=== PATIENT | female | born 1980 | race Caucasian/White ===

== ENCOUNTER 2016-05-28 14:33 | Outpatient (CLI) | payer MEDICAID | END 2016-05-28 14:34 | disposition home or self-care (01) | DX: M54.9 Dorsalgia, unspecified (principal); M54.5 Low back pain ==

== ENCOUNTER 2016-05-29 10:44 | Emergency (ER) | payer MEDICAID ==
[2016-05-29] MEDS ORDERED: KETOROLAC 60 MG/2 ML VIAL IM STA (12:24)
[2016-05-29] MEDS ORDERED: DEXAMETHASONE 10 MG/ML VIAL PO STA (12:25)
[2016-05-29] MEDS ORDERED: KETOROLAC 30 MG/ML VIAL ONE (12:31)
[2016-05-29] MEDS ORDERED: DEXAMETHASONE 10 MG/ML VIAL ONE (12:31)
[2016-05-29] MEDS ORDERED: CHERRY SYRUP 10 ML UDC PO ONE (12:31)
== END 2016-05-29 12:48 | disposition home or self-care (01) ==
DX: M54.41 Lumbago with sciatica, right side (principal); G89.29 Other chronic pain; M19.90 Unspecified osteoarthritis, unspecified site; F17.200 Nicotine dependence, unspecified, uncomplicated
CPT/HCPCS: 96372; 99283; A9270

== ENCOUNTER 2016-06-03 14:43 | Outpatient (CLI) | payer MEDICAID | END 2016-06-03 14:44 | disposition home or self-care (01) | DX: Z78.9 Other specified health status (principal) ==

== ENCOUNTER 2016-06-09 18:37 | Emergency (ER) | payer MEDICAID ==
[2016-06-09] MEDS ORDERED: DEXAMETHASONE 10 MG/ML VIAL IM STA (19:12)
[2016-06-09] MEDS ORDERED: DEXAMETHASONE 10 MG/ML VIAL ONE (19:15)
== END 2016-06-09 19:28 | disposition home or self-care (01) ==
DX: M54.41 Lumbago with sciatica, right side (principal); G89.29 Other chronic pain; R03.0 Elevated blood-pressure reading, without diagnosis of hypertension

== ENCOUNTER 2016-09-10 14:06 | Outpatient (CLI) | payer MEDICAID | END 2016-09-10 14:07 | disposition home or self-care (01) | DX: N63 Unspecified lump in breast (principal) ==

== ENCOUNTER 2017-07-20 13:04 | Outpatient (CLI) | payer MEDICAID | END 2017-07-20 13:05 | disposition home or self-care (01) | LOC: SC 13:04 | PROVIDERS: ATTEND Internal Medicine Pulmonary Disease | DX: G47.33 Obstructive sleep apnea (adult) (pediatric) (principal) | CPT/HCPCS: 99203; 99212 ==

== ENCOUNTER 2017-08-16 19:01 | Emergency (ER) | payer MEDICAID ==
[2017-08-16 19:20] VITALS: BP 142/118
--- NOTE | 2017-08-16 21:09 | ED Physician Documentation ---
PD HPI LOWER EXT INJURY - Stated complaint Stated Complaint: LEG SWELLING - Chief complaint Chief Complaint: Ext Problem - History obtained from History obtained from: Patient - History of Present Illness PD HPI LOW EXT INJURY LOCATION: Both, Other (had swelling of legs, hands and face yesterday. Arms and face improved today but still swelling of legs. No noted new foods, meds, and not on current BP meds.) Type of injury: Other (no injury nor bites/stings.) Where injury occurred: Home Timing - onset: Yesterday Timing - details: Abrupt onset, Still present (improving but still with legs swelling) Associated symptoms: Swelling. No: Weakness, Numbness Similar symptoms before: Has not had sx before Recently seen: Not recently seen Review of Systems Constitutional: denies: Fever Nose: denies: Rhinorrhea / runny nose, Congestion Throat: denies: Sore throat Respiratory: denies: Dyspnea, Cough, Wheezing GI: denies: Abdominal Pain, Nausea, Vomiting, Diarrhea Skin: denies: Rash, Lesions Neurologic: denies: Generalized weakness, Focal weakness, Numbness, Near syncope , Altered mental status, Headache Immunocompromised: denies: Immunocompromised PD PAST MEDICAL HISTORY - Past Medical History Past Medical History: Yes Cardiovascular: High cholesterol GI: GERD 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 Psych: Depression, Anxiety, Panic attacks Musculoskeletal: Osteoarthritis, Chronic back pain - Past Surgical History Past Surgical History: Yes /MANAGER SCHEDULING: section - Present Medications Home Medications: Ambulatory Orders Medication Instructions Recorded Confirmed Bcp 0 mg PO DAILY 02/02/16 05/29/16 Duloxetine HCl [Cymbalta] 60 mg PO DAILY 02/02/16 05/29/16 Minocycline HCl 1 cap PO BID 02/02/16 05/29/16 Pantoprazole Sodium 40 mg PO DAILY 02/02/16 05/29/16 Pravastatin Sodium 40 mg PO DAILY 02/02/16 05/29/16 Pregabalin [Lyrica] 1 cap PO DAILY 02/02/16 05/29/16 metFORMIN [Glucophage] 1 tab PO TID 02/02/16 05/29/16 Nabumetone 500 mg PO DAILY 03/25/16 05/29/16 Cyclobenzaprine [Flexeril] 10 mg PO TID PRN #20 tablet 05/29/16 Oxycodone HCl/Acetaminophen 1 - 2 each PO Q6H PRN #10 tablet 05/29/16 [Percocet 5-325 mg Tablet] Oxycodone HCl/Acetaminophen 1 - 2 tab PO Q4H PRN #15 tablet 06/09/16 [Percocet 5-325 mg Tablet] Cetirizine [ZyrTEC] 10 mg PO DAILY #10 tablet 08/16/17 Dexamethasone [Decadron] 4 mg PO DAILY #5 tablet 08/16/17 Furosemide [Lasix] 20 mg PO DAILY #5 tablet 08/16/17 - Allergies Allergies/Adverse Reactions: Allergies Allergy/AdvReac Type Severity Reaction Status Date / Time Penicillins Allergy Severe Respiratory Verified 08/16/17 19:21 hydrocodone bitartrate * AdvReac Severe Nausea Verified 08/16/17 19:21 [From Vicodin] tramadol AdvReac Severe Nausea Verified 08/16/17 19:21 - Social History Does the pt smoke?: Yes Smoking Status: Current every day smoker Does the pt drink ETOH?: Yes Does the pt have substance abuse?: No - Immunizations Immunizations are current?: Yes - POLST Patient has POLST: No PD ED PE NORMAL - Vitals Vital signs reviewed: Yes - General General: Alert and oriented X 3, No acute distress, Well developed/nourished - HEENT HEENT: Pharynx benign - Neck Neck: Supple, no meningeal sign, No adenopathy - Cardiac Cardiac: RRR, No murmur - Respiratory Respiratory: Clear bilaterally - Abdomen Abdomen: Soft, Non tender - Derm Derm: Normal color, Warm and dry, No rash - Extremities Extremities: Other (2+ edema in lower legs and ankles/feet. No redness; some general tenderness. Mild edema in back of hands. No oral swelling. ) - Neuro Neuro: Alert and oriented X 3, No motor deficit, Normal speech Eye Opening: Spontaneous Motor: Obeys Commands Verbal: Oriented GCS Score: 15 Results - Vitals Vitals: Oxygen O2 Source Room air PD MEDICAL DECISION MAKING - ED course Complexity details: considered differential (she), d/w patient Departure - Departure Disposition: 01 Home, Self Care Clinical Impression: Generalized edema Condition: Stable Record reviewed to determine appropriate education?: Yes Instructions: ED Edema Legs Bilateral Follow-Up: Selina Anderson DO [Primary Care Provider] - Prescriptions: Cetirizine [ZyrTEC] 10 mg PO DAILY #10 tablet Dexamethasone [Decadron] 4 mg PO DAILY #5 tablet Furosemide [Lasix] 20 mg PO DAILY #5 tablet Comments: I presume the swelling you had all over was related to an allergic reaction or some side effect. You are not on any medicines that would commonly do this you could develop reactions to any medication eventually. However there are a lot of environmental causes that could have done it as well. Use Decadron daily for the next 5 days and cetirizine daily for the next week. This would be for allergy response. The swelling in the legs he could do a diuretic daily for the next few days. Elevate and rest her feet often to help reduce the swelling. Recheck if not better over the next few days or if recurrent episodes. Forms: Activity restrictions Discharge Date/Time: 08/16/17 22:15
[2017-08-16] MEDS ORDERED: CETIRIZINE 10 MG TABLET PO STA (21:37)
[2017-08-16] MEDS ORDERED: DEXAMETHASONE 10 MG/ML VIAL PO STA (21:37)
[2017-08-16] MEDS ORDERED: FUROSEMIDE 20 MG TABLET PO STA (21:37)
[2017-08-16] MEDS ORDERED: diphenhydrAMINE 25 MG CAPSULE PO STA (21:37)
== END 2017-08-16 22:15 | disposition home or self-care (01) ==
LOC: ED 19:01
DX: R60.1 Generalized edema (principal); E78.00 Pure hypercholesterolemia, unspecified; F17.200 Nicotine dependence, unspecified, uncomplicated
CPT/HCPCS: 99283; A9270

== ENCOUNTER 2017-09-22 12:09 | Emergency (ER) | payer MEDICAID ==
[2017-09-22 12:23] VITALS: BP 138/77
--- NOTE | 2017-09-22 13:42 | ED Physician Documentation ---
PD HPI BACK PAIN - Stated complaint Stated Complaint: BACK PX - Chief complaint Chief Complaint: Back Pain - History obtained from History obtained from: Patient - History of Present Illness Timing - onset: Other (37-year-old woman with chronic back pain, lumbar pain that radiates to the right. It has been worse the last few days after cleaning at her apartment. At baseline she takes 3 Percocet a day for this and is in pain management with her physician in [place]. 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 ANALYST: section - Present Medications Home Medications: Ambulatory Orders Medication Instructions Recorded Confirmed Minocycline HCl 1 cap PO BID 02/02/16 05/29/16 Pregabalin [Lyrica] 1 cap PO DAILY 02/02/16 05/29/16 metFORMIN [Glucophage] 1 tab PO TID 02/02/16 05/29/16 Nabumetone 500 mg PO DAILY 03/25/16 05/29/16 Oxycodone HCl/Acetaminophen 1 - 2 tab PO Q4H PRN #15 tablet 06/09/16 [Percocet 5-325 mg Tablet] Amitriptyline HCl 50 mg PO QPM 09/22/17 09/22/17 Methocarbamol 750 mg PO QPM 09/22/17 09/22/17 Omeprazole 40 mg PO 09/22/17 Prazosin HCl 2 mg PO 09/22/17 predniSONE [Deltasone] 20 mg PO [id number] #21 tab 09/22/17 - Allergies Allergies/Adverse Reactions: Allergies Allergy/AdvReac Type Severity Reaction Status Date / Time Penicillins Allergy Severe Respiratory Verified 09/22/17 12:23 hydrocodone bitartrate * AdvReac Severe Nausea Verified 09/22/17 12:23 [From Vicodin] tramadol AdvReac Severe Nausea Verified 09/22/17 12:23 - Social History Does the pt smoke?: Yes Smoking Status: Current every day smoker Does the pt drink ETOH?: Yes Does the pt have substance abuse?: No - Immunizations Immunizations are current?: Yes - POLST Patient has POLST: No PD ED PE NORMAL - Vitals Vital signs reviewed: Yes - General General: Alert and oriented X 3, No acute distress - Back Back: Other (Tender to the right paralumbar musculature, no significant midline tenderness.The patient has equal and normal Achilles and patellar reflexes bilaterally. Normal sensation in all areas of the legs. Patient denies saddle anesthesia. Normal strength in flexion-extension at the ankles, knees, and flexion of the hips.) - Derm Derm: Normal color, Warm and dry - Extremities Extremities: No edema, No calf tenderness / cord - Neuro Neuro: Alert and oriented X 3, Normal speech Results - Vitals Vitals: Vital Signs - 24 hr 09/22/17 12:20 Temperature 36.1 C L Heart Rate 97 Respiratory 18 Rate Blood Pressure 138/77 H O2 Saturation 97 Oxygen O2 Source Room air PD MEDICAL DECISION MAKING - ED course ED course: She says that in the past when she has an exacerbation like this a steroid taper is very helpful and she also needs a note for work. - Sepsis Event Vital Signs: Vital Signs - 24 hr 09/22/17 12:20 Temperature 36.1 C L Heart Rate 97 Respiratory 18 Rate Blood Pressure 138/77 H O2 Saturation 97 Oxygen O2 Source Room air Departure - Departure Disposition: 01 Home, Self Care Clinical Impression: Sciatica Qualifiers: Laterality: right Qualified Code(s): M54.31 - Sciatica, right side Condition: Good Record reviewed to determine appropriate education?: Yes Instructions: ED Spasm Back No Trauma Prescriptions: predniSONE [Deltasone] 20 mg PO [id number] #21 tab Comments: Call your doctor to arrange a follow-up appointment, make the next available appointment. In the interim, return anytime if worse or if new symptoms develop. Your blood pressure was elevated today on check into the emergency department. This does not mean that you have hypertension, it is a common phenomenon to come to the emergency department and have elevated blood pressure. I recommend that you see your primary care physician within the week to have it rechecked when you are feeling better. Forms: Activity restrictions
== END 2017-09-22 13:44 | disposition home or self-care (01) ==
LOC: ED 12:09
DX: M54.31 Sciatica, right side (principal); G89.29 Other chronic pain; R03.0 Elevated blood-pressure reading, without diagnosis of hypertension; E78.00 Pure hypercholesterolemia, unspecified; K21.9 Gastro-esophageal reflux disease without esophagitis; Z79.899 Other long term (current) drug therapy; F17.200 Nicotine dependence, unspecified, uncomplicated
CPT/HCPCS: 99283

== ENCOUNTER 2017-12-28 10:54 | Outpatient (CLI) | payer MEDICAID ==
[2017-12-29 13:17] LABS: HEPATITIS B SURFACE ANTIGEN NON-REACTIVE (NON-REACTIVE)
[2017-12-29 13:31] LABS: HEPATITIS C ANTIBODY NON-REACTIVE (NON-REACTIVE)
[2017-12-29 14:48] LABS: HIV AG/AB 4TH GEN NON-REACTIVE (NON-REACTIVE)
[2017-12-30 15:23] LABS: HSV 1 IGG TYPE SPECIFIC AB <0.90 index; HSV 2 IGG TYPE SPECIFIC AB <0.90 index
== END 2017-12-28 10:55 | disposition home or self-care (01) ==
LOC: LAB 10:54
PROVIDERS: ATTEND Obstetrics & Gynecology
DX: Z11.3 Encounter for screening for infections with a predominantly sexual mode of transmission (principal)
CPT/HCPCS: 36415; 81599; 86592; 86695; 86696; 86803; 87340; 87389

== ENCOUNTER 2018-02-10 19:38 | Emergency (ER) | payer MEDICAID ==
--- NOTE | 2018-02-10 20:18 | ED Physician Documentation ---
PD HPI GI BLEED - Stated complaint Stated Complaint: FEM /TRUNK PX - Chief complaint Chief Complaint: General - History obtained from History obtained from: Patient - History of Present Illness Timing - onset: How many weeks ago (1) Timing - duration: Weeks (1) Timing - details: Gradual onset, Still present Associated symptoms: BRBPR, Other (swollen tender hemorrhoids) Contributing factors: No: Sick contact, Bad food, Travel, Recent antibiotics Similar symptoms before: Diagnosis (hemorrhoids) Recently seen: Not recently seen Review of Systems Constitutional: denies: Fever Eyes: denies: Decreased vision Ears: denies: Ear pain Nose: denies: Congestion Throat: denies: Sore throat Cardiac: denies: Chest pain / pressure, Palpitations Respiratory: denies: Dyspnea, Cough GI: reports: Bloody / black stool, Other (swollen tender hemorrhoids). 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 - Present Medications Home Medications: Ambulatory Orders Medication Instructions Recorded Confirmed Minocycline HCl 1 cap PO BID 02/02/16 05/29/16 Pregabalin [Lyrica] 1 cap PO DAILY 02/02/16 05/29/16 metFORMIN [Glucophage] 1 tab PO TID 02/02/16 05/29/16 Nabumetone 500 mg PO DAILY 03/25/16 05/29/16 Oxycodone HCl/Acetaminophen 1 - 2 tab PO Q4H PRN #15 tablet 06/09/16 [Percocet 5-325 mg Tablet] Methocarbamol 750 mg PO QPM 09/22/17 09/22/17 Omeprazole 40 mg PO 09/22/17 Prazosin HCl 2 mg PO 09/22/17 Sulfamethoxazole/Trimethoprim 1 each PO BID #10 tablet 02/10/18 [Sulfamethoxazole-Tmp Ds Tablet] Venlafaxine ER [Effexor ER] 150 mg PO DAILY 02/10/18 02/10/18 busPIRone [Buspar] 5 mg PO BID 02/10/18 02/10/18 - Allergies Allergies/Adverse Reactions: Allergies Allergy/AdvReac Type Severity Reaction Status Date / Time Penicillins Allergy Severe Respiratory Verified 02/10/18 19:44 hydrocodone bitartrate * AdvReac Severe Nausea Verified 02/10/18 19:44 [From Vicodin] tramadol AdvReac Severe Nausea Verified 02/10/18 19:44 - Social History Does the pt smoke?: Yes Smoking Status: Current every day smoker Does the pt drink ETOH?: Yes Does the pt have substance abuse?: No - Immunizations Immunizations are current?: Yes - POLST Patient has POLST: No PD ED PE NORMAL - Vitals Vital signs reviewed: Yes (hypertensive) - General General: Alert and oriented X 3, No acute distress, Well developed/nourished - HEENT HEENT: Atraumatic, PERRL, EOMI - Neck Neck: Supple, no meningeal sign - Respiratory Respiratory: No respiratory distress - Rectal Rectal: Other (Giovanna predatory hunter present. EXam shows non-thrombosed external and interal hemmorrhoids the most prevalent at 1200 and this was reduced with hydrocortisone and continued pressure. There is a lot of excoriation to the skin above the rectum consistent with excessive wiping. There is no blood on the exam at this time. 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, No motor deficit, No sensory deficit, Normal speech Eye Opening: Spontaneous Motor: Obeys Commands Verbal: Oriented GCS Score: 15 - Psych Psych: Normal mood, Normal affect Results - Vitals Vitals: Vital Signs - 24 hr 02/10/18 19:42 Temperature 37 C Heart Rate 86 Respiratory 18 Rate Blood Pressure 174/102 H O2 Saturation 98 Oxygen O2 Source Room air PD MEDICAL DECISION MAKING - ED course Complexity details: considered differential, d/w patient ED course: 37-year-old female with painful hemorrhoids that are not thrombosed has her hemorrhoids reduced with use of hydrocortisone and pressure she is taught the technique of hemorrhoid reduction and encouraged to use this to get control of her inflamed hemorrhoids. She does have some skin breakdown and will place her on a short course of antibiotic as well. Departure - Departure Disposition: 01 Home, Self Care Clinical Impression: Hemorrhoids Qualifiers: Hemorrhoid type: second degree Qualified Code(s): K64.1 - Second degree hemorrhoids Condition: Stable Instructions: ED Hemorrhoids Follow-Up: Your, doctor [Other] Prescriptions: Sulfamethoxazole/Trimethoprim [Sulfamethoxazole-Tmp Ds Tablet] 1 each PO BID #10 tablet
[2018-02-10] MEDS ORDERED: HYDROCORTISONE 1% CREAM 28 GM TUBE TOP STA (20:30)
[2018-02-10] MEDS ORDERED: oxyCODONE/ACET 5/325 Prepack 4 PO STA (22:09)
[2018-02-10] MEDS ORDERED: SULFAM/TRIM 800/160 Prepack 2 PO ONE (22:14)
[2018-02-10 22:30] VITALS: BP 131/81
== END 2018-02-10 22:32 | disposition home or self-care (01) ==
LOC: ED 19:38
DX: K64.1 Second degree hemorrhoids (principal); F17.200 Nicotine dependence, unspecified, uncomplicated
CPT/HCPCS: 99283; A9270

== ENCOUNTER 2018-02-14 06:18 | Emergency (ER) | payer MEDICAID ==
[2018-02-14] MEDS ORDERED: SODIUM CHLORIDE 0.9% 1,000 ML IV ONE (07:22)
[2018-02-14] MEDS ORDERED: diphenhydrAMINE INJ 50 MG/ML VIAL IVP STA (07:22)
[2018-02-14] MEDS ORDERED: METOCLOPRAMIDE 10 MG/2 ML VIAL IVP STA (07:22)
[2018-02-14] MEDS ORDERED: ACETAMINOPHEN 1,000 MG/100 ML 100 ML IV STA (07:22)
[2018-02-14] MEDS ORDERED: LORazepam 2 MG/ML VIAL IVP STA (07:22)
[2018-02-14 07:55] LABS: ALBUMIN 3.8 g/dL (3.2-5.5); ALBUMIN/GLOBULIN RATIO 1.1 (1.0-2.2); BILIRUBIN,TOTAL 0.6 mg/dL (0.2-1.0); CREATININE 0.8 mg/dL (0.4-1.0); TOTAL PROTEIN 7.2 g/dL (6.7-8.2)
--- NOTE | 2018-02-14 08:27 | CT Report ---
Reason: SIMS Procedure Date: 02/14/2018 Accession Number: [id number] / [id number] Procedure: CT - Head W/O CPT Code: FULL RESULT: EXAM: CT HEAD WITHOUT CONTRAST EXAM DATE: 02/14/2018 08:08 AM. CLINICAL HISTORY: Headache. COMPARISON: None. TECHNIQUE: Multiaxial CT images were obtained from the foramen magnum to the vertex. Reformats: Sagittal and coronal. IV contrast: None. In accordance with CT protocol optimization, one or more of the following dose reduction techniques were utilized for this exam: automated exposure control, adjustment of mA and/or KV based on patient size, or use of iterative reconstructive technique. FINDINGS: Parenchyma: No intraparenchymal hemorrhage. No evidence of mass, midline shift, or CT findings of infarction. Hussein-white differentiation is distinct. Extraaxial Spaces: Normal for age. No subdural or epidural collections identified. Ventricles: Normal in size and position. Sinuses and Orbits: Imaged paranasal sinuses, orbits, and mastoids show no significant abnormality. Bones: No evidence of fracture or calvarial defect. Other: None. IMPRESSION: No acute intracranial abnormality. RADIA
[2018-02-14] MEDS ORDERED: SUMAtriptan 6 MG/0.5 ML VIAL SUBQ STA (08:49)
[2018-02-14] MEDS ORDERED: KETOROLAC 15 MG/ML VIAL IVP STA (08:49)
--- NOTE | 2018-02-14 08:56 | ED Physician Documentation ---
History of Present Illness - Stated complaint Stated Complaint: BILAT LEG PX/MIGRAINE - Chief complaint Chief Complaint: General - Additonal information Additional information: 37-year-old female with a history of headaches presents the emergency department with complaints of a generalized global headache which she describes as a throbbing type headache. The patient denies any neck stiffness, radiation into her neck, fever or focal neurologic changes. The patient's headache is similar to prior episodes of headache she is experienced in the past but has had no relief with home management. The patient also reports bilateral leg cramping which started several days ago. The patient recently started using Bactrim. The patient denies motor weakness, urinary retention, overflow incontinence, back pain, hematuria, sensory changes or saddle anesthesia. Symptoms are described as moderate. No relieving factors. No other associated symptoms Review of Systems Constitutional: denies: Fever, Myalgias, Fatigue Eyes: reports: Photophobia. denies: Discharge Ears: denies: Ear pain Nose: denies: Congestion Throat: denies: Sore throat Cardiac: denies: Chest pain / pressure Respiratory: denies: Cough GI: reports: Nausea. denies: Abdominal Pain Skin: denies: Rash Musculoskeletal: denies: Neck pain Neurologic: reports: Headache. 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 Psych: Depression, Anxiety, Panic attacks Musculoskeletal: Osteoarthritis, Chronic back pain Other Past Medical History: spinal stenosis - Past Surgical History Past Surgical History: Yes /WASH TEST CHECKER: section HEENT: Tonsil/Adenoidectomy - Present Medications Home Medications: Ambulatory Orders Medication Instructions Recorded Confirmed Minocycline HCl 1 cap PO BID 02/02/16 05/29/16 Pregabalin [Lyrica] 1 cap PO DAILY 02/02/16 05/29/16 metFORMIN [Glucophage] 1 tab PO TID 02/02/16 05/29/16 Nabumetone 500 mg PO DAILY 03/25/16 05/29/16 Oxycodone HCl/Acetaminophen 1 - 2 tab PO Q4H PRN #15 tablet 06/09/16 [Percocet 5-325 mg Tablet] Methocarbamol 750 mg PO QPM 09/22/17 09/22/17 Omeprazole 40 mg PO 09/22/17 Prazosin HCl 2 mg PO 09/22/17 Sulfamethoxazole/Trimethoprim 1 each PO BID #10 tablet 02/10/18 [Sulfamethoxazole-Tmp Ds Tablet] Venlafaxine ER [Effexor ER] 150 mg PO DAILY 02/10/18 02/10/18 busPIRone [Buspar] 5 mg PO BID 02/10/18 02/10/18 Promethazine [Phenergan] 25 mg PO Q6H PRN #30 tab 02/14/18 Sumatriptan Succinate [Imitrex] 50 mg PO DAILY PRN #10 tablet 02/14/18 - Allergies Allergies/Adverse Reactions: Allergies Allergy/AdvReac Type Severity Reaction Status Date / Time Penicillins Allergy Severe Respiratory Verified 02/14/18 06:27 hydrocodone bitartrate * AdvReac Severe Nausea Verified 02/14/18 06:27 [From Vicodin] tramadol AdvReac Severe Nausea Verified 02/14/18 06:27 - Social History Does the pt smoke?: Yes Smoking Status: Current every day smoker Does the pt drink ETOH?: Yes Does the pt have substance abuse?: No - Immunizations Immunizations are current?: Yes - POLST Patient has POLST: No PD ED PE NORMAL - General General: Alert and oriented X 3, No acute distress - HEENT HEENT: Atraumatic, PERRL, EOMI, Ears normal - Neck Neck: Supple, no meningeal sign - Cardiac Cardiac: RRR, Strong equal pulses - Respiratory Respiratory: No respiratory distress, Clear bilaterally - Abdomen Abdomen: Soft, Non tender, Non distended - Derm Derm: Normal color, Warm and dry, No rash - Extremities Extremities: No deformity, No tenderness to palpate, Normal ROM s pain, No edema, No calf tenderness / cord, Other (The patient has full active range of motion of the bilateral hips, knees and ankles. There is no lower extremity swelling. The patient has no calf tenderness bilaterally. The patient has normal bilateral dorsalis pedis pulses. There is no skin changes. No focal area of abscess. There is normal motor strength in bilateral lower extremities and normal sensation to light touch.) - Neuro Neuro: Alert and oriented X 3, Normal speech - Psych Psych: Normal affect Results - Vitals Vitals: Vital Signs - 24 hr 02/14/18 02/14/18 06:23 08:30 Temperature 36.3 C L Heart Rate 72 66 Respiratory 24 14 Rate Blood Pressure 161/100 H 154/92 H O2 Saturation 97 96 Oxygen O2 Source Room air - Labs Labs: Laboratory Tests 02/14/18 07:34 Sodium 136 Potassium 4.3 Chloride 100 L Carbon Dioxide 23 Anion Gap 13.0 BUN 16 Creatinine 0.8 Estimated GFR (MDRD) 82 L Glucose 93 Calcium 9.0 Total Bilirubin 0.6 AST 24 ALT 28 Alkaline Phosphatase 67 Total Creatine Kinase 44 Total Protein 7.2 Albumin 3.8 Globulin 3.4 Albumin/Globulin Ratio 1.1 Lipase 20 L - Rads (name of study) CT head Radiology: Final report received (IMPRESSION: No acute intracranial abnormality. ) PD MEDICAL DECISION MAKING - ED course ED course: On reevaluation the patient resting comfortably and her symptoms appear to be under control. The patient's headache seems to be her typical migrainous headache, clinically there is no findings or symptoms to suggest spontaneous subarachnoid hemorrhage, meningitis or venous sinus thrombosis. Currently I do not think a lumbar puncture would be of much utility or a CT angiogram. The patient's leg pain seems to be secondary to muscle cramps possibly from starting Bactrim. Clinically there is no evidence to suggest an acute arterial thrombus, DVT, trauma or an infectious etiology. Currently, the patient appears appropriate for discharge and further evaluation and management as an outpatient. I advised that she should stop taking the Bactrim. I discussed warning signs and recommended returning to the emergency department immediately for any worsening or any concerns. The patient requested that I refill her chronic narcotic pain management medications. I explained to her that we do not refill chronic narcotic pain medications out of the emergency department. I advised that she should contact her prescribing physician for any early refills. The patient reported that she was out of her narcotics at the end of the visit. The patient was unhappy with this plan. Departure - Departure Disposition: 01 Home, Self Care Clinical Impression: Bilateral leg cramps Headache Qualifiers: Headache type: unspecified Headache chronicity pattern: unspecified pattern Intractability: not intractable Qualified Code(s): R51 - Headache Condition: Good Instructions: ED Cephalgia Unspecified, ED Muscle Pain Leg Cramps Prescriptions: Promethazine [Phenergan] 25 mg PO Q6H PRN #30 tab PRN Reason: Nausea / Vomiting Sumatriptan Succinate [Imitrex] 50 mg PO DAILY PRN #10 tablet PRN Reason: Headache Comments: Please follow-up with your primary care physician for recheck and reevaluation. Please return to the emergency department immediately for any worsening or any concerns. Discharge Date/Time: 02/14/18 09:15
[2018-02-14 09:30] VITALS: BP 154/92
== END 2018-02-14 09:15 | disposition home or self-care (01) ==
LOC: ED 06:18
DX: R51 Headache (principal); R25.2 Cramp and spasm; F17.200 Nicotine dependence, unspecified, uncomplicated
CPT/HCPCS: 36415; 70450; 80053; 82550; 83690; 96365; 96372; 96375; 99283; 99284; J0131; J1200; J2060; J2765

== ENCOUNTER 2018-02-22 08:00 | Outpatient (CLI) | payer MEDICAID | END 2018-02-22 08:01 | disposition home or self-care (01) | LOC: LAB.R 08:00 | PROVIDERS: ATTEND Obstetrics & Gynecology | DX: R30.0 Dysuria (principal) | CPT/HCPCS: 87086 ==

== ENCOUNTER 2018-05-25 18:23 | Emergency (ER) | payer MEDICAID ==
--- NOTE | 2018-05-25 20:48 | ED Physician Documentation ---
PD HPI BACK INJURY - Stated complaint Stated Complaint: BACK PAIN - History obtained from History obtained from: Patient - History of Present Illness Location: Right, Lower Type of injury: No: Fall, Twist, Blunt / blow Where injury occurred: Home (She states she has chronic low back pain and does see a provider for that. She is on regular anti-inflammatories, muscle relaxant, Lyrica. She does not take any ongoing narcotic medications. Without particular injury, she noticed a worsening of the prior low back pain.) Timing - onset: How many days ago (4-5) Timing - duration: Days (4-5) Timing - details: Gradual onset, Waxing and waning Quality: Pain, Spasm, Similar to prior episodes Improved by: No: Rest, Meds (Her usual medications are not improving the pain.) Worsened by: Moving, Palpating Associated symptoms: Incontinent of urine (For several months and has been to her primary care about it. She states they did do some manometry and it was not felt to have significant cord pressure.). No: Fever, Weakness, Numbness Similar symptoms before: Diagnosis (Chronic low back pain with some degenerative disc disease but not surgical. She is being treated with medications ongoing.) Review of Systems Constitutional: denies: Fever, Chills, Myalgias Nose: denies: Rhinorrhea / runny nose, Congestion Throat: denies: Sore throat Respiratory: denies: Cough GI: denies: Nausea, Vomiting, Diarrhea : reports: Incontinent (at times, but not consistent, since last February). 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 Psych: Depression, Anxiety, Panic attacks Musculoskeletal: Osteoarthritis, Chronic back pain - Past Surgical History Past Surgical History: Yes /DIRT SHOVELER: section HEENT: Tonsil/Adenoidectomy - Present Medications Home Medications: Ambulatory Orders Medication Instructions Recorded Confirmed Pregabalin [Lyrica] 1 cap PO DAILY 02/02/16 05/25/18 metFORMIN [Glucophage] 1 tab PO TID 02/02/16 05/25/18 Nabumetone 500 mg PO DAILY 03/25/16 05/29/16 Oxycodone HCl/Acetaminophen 1 - 2 tab PO Q4H PRN #15 tablet 06/09/16 [Percocet 5-325 mg Tablet] Methocarbamol 750 mg PO QPM 09/22/17 09/22/17 Omeprazole 40 mg PO 09/22/17 Prazosin HCl 2 mg PO 09/22/17 Venlafaxine ER [Effexor ER] 150 mg PO DAILY 02/10/18 05/25/18 Sumatriptan Succinate [Imitrex] 50 mg PO DAILY PRN #10 tablet 02/14/18 05/25/18 Dexamethasone [Decadron] 4 mg PO DAILY #5 tablet 05/25/18 Oxycodone HCl/Acetaminophen 1 each PO Q6H PRN #25 tablet 05/25/18 [Percocet 5-325 mg Tablet] PARoxetine [Paxil] 10 mg PO DAILY 05/25/18 - Allergies Allergies/Adverse Reactions: Allergies Allergy/AdvReac Type Severity Reaction Status Date / Time Penicillins Allergy Severe Respiratory Verified 02/14/18 06:27 hydrocodone bitartrate * AdvReac Severe Nausea Verified 02/14/18 06:27 [From Vicodin] tramadol AdvReac Severe Nausea Verified 02/14/18 06:27 - Social History Does the pt smoke?: Yes Smoking Status: Current every day smoker Does the pt drink ETOH?: Yes Does the pt have substance abuse?: No - Immunizations Immunizations are current?: Yes - POLST Patient has POLST: No PD ED PE NORMAL - Vitals Vital signs reviewed: Yes - General General: Alert and oriented X 3, Well developed/nourished, Other (obese) - Cardiac Cardiac: RRR, No murmur - Abdomen Abdomen: Soft, Non tender - Back Back: No spinal TTP, Other (tender in lateral lumbar muscles ) - Derm Derm: Normal color, Warm and dry - Extremities Extremities: No edema, No calf tenderness / cord - Neuro Neuro: Alert and oriented X 3, No motor deficit, Normal speech Results - Vitals Vitals: Vital Signs - 24 hr 05/25/18 05/25/18 18:33 21:52 Temperature 36.6 C Heart Rate 78 91 Respiratory 18 18 Rate Blood Pressure 149/102 H 161/102 H O2 Saturation 96 95 Oxygen O2 Source Room air PD MEDICAL DECISION MAKING - ED course Complexity details: considered differential (She is on medications for chronic pain with anti-inflammatory, muscle relaxant, Lyrica. She does not take any regular narcotics. She is having worsening over baseline pain last several days without any noted new trauma. There is no red flags to suggest need for imaging. I feel it reasonable to provide short-term pain medication for this flareup of her chronic pain.), d/w patient Departure - Departure Disposition: 01 Home, Self Care Clinical Impression: Acute exacerbation of chronic low back pain Condition: Stable Record reviewed to determine appropriate education?: Yes Instructions: ED Low Back Pain Injury Prescriptions: Dexamethasone [Decadron] 4 mg PO DAILY #5 tablet Oxycodone HCl/Acetaminophen [Percocet 5-325 mg Tablet] 1 each PO Q6H PRN #25 tablet PRN Reason: pain Comments: Continue your regular medications with the anti-inflammatory and muscle relaxant. Heat and gentle range of motion for the low back as tolerated. Local treatment such as massage and chiropractic are okay. Add Decadron steroid anti- inflammatory daily for the next 5 days. Oxycodone pain medicine if needed short-term for the exacerbation of pain. Presumably this will go down to your baseline level of pain and continue with your regular medications at home. Follow-up with your primary care if not improved well enough over the next week. Discharge Date/Time: 05/25/18 21:52
[2018-05-25] MEDS ORDERED: KETOROLAC 60 MG/2 ML VIAL IM STA (21:18)
[2018-05-25] MEDS ORDERED: HYDROmorphone 1 MG/ML CARPUJECT IM STA (21:18)
[2018-05-25] MEDS ORDERED: ACETAMINOPHEN 325 MG TABLET PO STA (21:19)
[2018-05-25] MEDS ORDERED: DEXAMETHASONE 10 MG/ML VIAL PO STA (21:19)
[2018-05-25] MEDS ORDERED: oxyCODONE/ACET 5/325 Prepack 4 PO STA (21:19)
[2018-05-25 21:53] VITALS: BP 161/102
== END 2018-05-25 21:52 | disposition home or self-care (01) ==
LOC: ED 18:23
DX: M54.5 Low back pain (principal); G89.29 Other chronic pain
CPT/HCPCS: 96372; 99283; A9270; J1170

== ENCOUNTER 2018-07-02 22:54 | Emergency (ER) | payer MEDICAID ==
[2018-07-02] MEDS ORDERED: ACETAMINOPHEN 500 MG TABLET PO STA (23:46)
[2018-07-02] MEDS ORDERED: oxyCODONE 5 MG TABLET PO STA (23:46)
[2018-07-02] MEDS ORDERED: LIDOCAINE PATCH 5% TOP STA (23:47)
[2018-07-02] MEDS ORDERED: KETOROLAC 15 MG/ML VIAL IM STA (23:47)
--- NOTE | 2018-07-03 01:00 | XRAY Report ---
Reason: Left rib pain Procedure Date: 07/03/2018 Accession Number: [id number] / [id number] Procedure: XR - Ribs w/PA Chest LT CPT Code: FULL RESULT: EXAM: LEFT RIB RADIOGRAPHY EXAM DATE: 07/03/2018 12:38 AM. CLINICAL HISTORY: Left rib pain. COMPARISON: CHEST 2 VIEW PA/LAT 02/02/2016 11:30 PM. TECHNIQUE: 1 view of the chest and 2 views of the ribs. FINDINGS: Bones: Motion artifact. No acute fracture seen. Lungs: No alveolar consolidation or pleural effusion seen. No pneumothorax identified. Mediastinum: Within exam limitations, cardiomediastinal silhouette is unremarkable. Other: None. IMPRESSION: 1. Images are degraded due to motion artifact. No acute abnormality seen. RADIA
--- NOTE | 2018-07-03 01:13 | ED Physician Documentation ---
PD HPI BACK PAIN - Stated complaint Stated Complaint: BACK PAIN - Chief complaint Chief Complaint: Back Pain - History obtained from History obtained from: Patient - History of Present Illness Timing - onset: How many days ago (2) Timing - duration: Days (2) Timing - details: Gradual onset Pain level max: 6 Pain level now: 6 Severity Comments: moderate Location: Mid Quality: Pain Associated symptoms: No: Fever, Weakness Improves with: Rest Worsened by: Movement Contributing factors: Other (fall). No: Lifting, Twisting Review of Systems Constitutional: reports: Reviewed and negative Eyes: reports: Reviewed and negative Ears: reports: Reviewed and negative Nose: reports: Reviewed and negative Throat: reports: Reviewed and negative Cardiac: reports: Reviewed and negative Respiratory: reports: Reviewed and negative GI: reports: Reviewed and negative : reports: Reviewed and negative Skin: reports: Reviewed and negative Musculoskeletal: reports: Reviewed and negative Neurologic: reports: Reviewed and negative Psychiatric: reports: Reviewed and negative Endocrine: reports: Reviewed and negative Immunocompromised: reports: Reviewed and negative PD PAST MEDICAL HISTORY - Past Medical History Past Medical History: Yes Cardiovascular: High cholesterol Neuro: Headaches GI: 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 Psych: Depression, Anxiety, Panic attacks Musculoskeletal: Osteoarthritis, Chronic back pain - Past Surgical History Past Surgical History: Yes /STAMPING 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 HEENT: Tonsil/Adenoidectomy - Present Medications Home Medications: Ambulatory Orders Medication Instructions Recorded Confirmed Pregabalin [Lyrica] 1 cap PO DAILY 02/02/16 05/25/18 metFORMIN [Glucophage] 1 tab PO TID 02/02/16 05/25/18 Nabumetone 500 mg PO DAILY 03/25/16 05/29/16 Oxycodone HCl/Acetaminophen 1 - 2 tab PO Q4H PRN #15 tablet 06/09/16 [Percocet 5-325 mg Tablet] Methocarbamol 750 mg PO QPM 09/22/17 09/22/17 Omeprazole 40 mg PO 09/22/17 Prazosin HCl 2 mg PO 09/22/17 Venlafaxine ER [Effexor ER] 150 mg PO DAILY 02/10/18 05/25/18 Sumatriptan Succinate [Imitrex] 50 mg PO DAILY PRN #10 tablet 02/14/18 05/25/18 PARoxetine [Paxil] 10 mg PO DAILY 05/25/18 Acetaminophen [Tylenol Extra 1,000 mg PO TID #60 tablet 07/03/18 Strength] Capsaicin/Menthol [Allevess 1 each TP DAILY #10 adh..patch 07/03/18 5%-0.05% Patch] Ibuprofen 800 mg PO TID #60 tablet 07/03/18 Lidocaine Patch 5% [Lidoderm Patch] 1 each PATCH DAILY #10 patch 07/03/18 - Allergies Allergies/Adverse Reactions: Allergies Allergy/AdvReac Type Severity Reaction Status Date / Time Penicillins Allergy Severe Respiratory Verified 07/02/18 23:01 hydrocodone bitartrate * AdvReac Severe Nausea Verified 07/02/18 23:01 [From Vicodin] tramadol AdvReac Severe Nausea Verified 07/02/18 23:01 - Living Situation Living Situation: reports: With family Living Arrangement: reports: At home - Social History Does the pt smoke?: Yes Smoking Status: Current every day smoker Does the pt drink ETOH?: Yes Does the pt have substance abuse?: No - Family History Family history: reports: Other (Reviewed and not pertinent) - Immunizations Immunizations are current?: Yes - POLST Patient has POLST: No PD ED PE NORMAL - Vitals Vital signs reviewed: Yes - General General: Alert and oriented X 3, No acute distress - HEENT HEENT: PERRL - Neck Neck: Supple, no meningeal sign - Cardiac Cardiac: RRR, No murmur - Respiratory Respiratory: Clear bilaterally - Abdomen Abdomen: Normal bowel sounds, Soft, Non tender, Non distended - Back Back: Other (Paraspinous tenderness to palpation no midline tenderness, Normal hip flexor strength, patellar and Achilles reflex, great toe raise. Negative straight leg raise bilaterally.) - Derm Derm: Warm and dry - Extremities Extremities: No deformity - Neuro Neuro: Alert and oriented X 3 - Psych Psych: Normal mood, Normal affect Results - Vitals Vitals: Vital Signs - 24 hr 07/02/18 07/03/18 22:57 01:18 Temperature 36.4 C L 36.5 C Heart Rate 79 70 Respiratory 18 14 Rate Blood Pressure 143/97 H 131/89 H O2 Saturation 99 98 Oxygen O2 Source Room air - Rads (name of study) Rib x-ray Radiology: Final report received, Other (Within normal limits) PD MEDICAL DECISION MAKING - ED course Complexity details: reviewed results, re-evaluated patient, considered differential, d/w patient, d/w family ED course: 38-year-old female with chronic low back pain resents with low back pain after ground-level fall. Exam unremarkable. Rib x-rays due to rib pain or unremarkable. Pain improved with pain medication. No red flags by history or exam. No clinical indication of cord compression, fracture, cauda equina, abdominal aortic aneurysm. Discharge with symptomatic treatment. Departure - Departure Disposition: 01 Home, Self Care Clinical Impression: Acute exacerbation of chronic low back pain Condition: Stable Instructions: ED Back Care Tips, ED Low Back Pain Injury Follow-Up: Your, PCP [Other] Prescriptions: Acetaminophen [Tylenol Extra Strength] 1,000 mg PO TID #60 tablet Capsaicin/Menthol [Allevess 5%-0.05% Patch] 1 each TP DAILY #10 adh..patch Ibuprofen 800 mg PO TID #60 tablet Lidocaine Patch 5% [Lidoderm Patch] 1 each PATCH DAILY #10 patch Discharge Date/Time: 07/03/18 01:43
[2018-07-03 01:19] VITALS: BP 131/89
[2018-07-03] MEDS ORDERED: oxyCODONE/ACET 5/325 Prepack 4 PO STA (01:34)
== END 2018-07-03 01:43 | disposition home or self-care (01) ==
LOC: ED 22:54
DX: M54.5 Low back pain (principal); G89.29 Other chronic pain; E78.00 Pure hypercholesterolemia, unspecified; F17.200 Nicotine dependence, unspecified, uncomplicated; Z91.81 History of falling
CPT/HCPCS: 71101; 96372; 99283; A9270

== ENCOUNTER 2018-07-24 19:48 | Emergency (ER) | payer MEDICAID ==
--- NOTE | 2018-07-24 21:13 | ED Physician Documentation ---
PD HPI CHEST PAIN - Stated complaint Stated Complaint: MULTIPLE COMP. - Chief complaint Chief Complaint: General - History obtained from History obtained from: Patient - History of Present Illness Timing - onset: How many weeks ago (1) Timing - onset during: Light activity (having pain in upper chest and back with movement and it feels tight at times. Her low back pain is chronic and same character as usual, just worse in severity than usual. No new weakness nor incontinence.) Timing - duration: Weeks (1) Timing - details: Waxing and waning, Other (she is out of her muscle relaxant and usual pain meds for her low back.) Quality: Aching, Sharp, Pain Location: Substernal, Upper back Radiation: Back. No: Jaw, Neck Improved by: Rest Worsened by: Inspiration, Movement. No: Exertion Associated symptoms: Feeling faint / dizzy. No: Shortness of air, Nausea Similar symptoms before: Diagnosis (ongoing lower back pain; no prior episodes of chest/upper back pain.) Review of Systems Constitutional: denies: Fever Nose: denies: Rhinorrhea / runny nose, Congestion Throat: denies: Sore throat Cardiac: reports: Chest pain / pressure. 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 HEENT: Tonsil/Adenoidectomy - Present Medications Home Medications: Ambulatory Orders Medication Instructions Recorded Confirmed Pregabalin [Lyrica] 1 cap PO DAILY 02/02/16 05/25/18 metFORMIN [Glucophage] 1 tab PO TID 02/02/16 05/25/18 Nabumetone 500 mg PO DAILY 03/25/16 05/29/16 Oxycodone HCl/Acetaminophen 1 - 2 tab PO Q4H PRN #15 tablet 06/09/16 [Percocet 5-325 mg Tablet] Methocarbamol 750 mg PO QPM 09/22/17 09/22/17 Omeprazole 40 mg PO 09/22/17 Prazosin HCl 2 mg PO 09/22/17 Venlafaxine ER [Effexor ER] 150 mg PO DAILY 02/10/18 05/25/18 Sumatriptan Succinate [Imitrex] 50 mg PO DAILY PRN #10 tablet 02/14/18 05/25/18 PARoxetine [Paxil] 10 mg PO DAILY 05/25/18 Acetaminophen [Tylenol Extra 1,000 mg PO TID #60 tablet 07/03/18 Strength] Capsaicin/Menthol [Allevess 1 each TP DAILY #10 adh..patch 07/03/18 5%-0.05% Patch] Ibuprofen 800 mg PO TID #60 tablet 07/03/18 Lidocaine Patch 5% [Lidoderm Patch] 1 each PATCH DAILY #10 patch 07/03/18 Dexamethasone [Decadron] 4 mg PO DAILY #5 tablet 07/24/18 Methocarbamol [Robaxin-750] 750 mg PO BID #20 tablet 07/24/18 Oxycodone HCl/Acetaminophen 1 each PO TID PRN #20 tablet 07/24/18 [Percocet 5-325 mg Tablet] - Allergies Allergies/Adverse Reactions: Allergies Allergy/AdvReac Type Severity Reaction Status Date / Time Penicillins Allergy Severe Respiratory Verified 07/24/18 19:59 hydrocodone bitartrate * AdvReac Severe Nausea Verified 07/24/18 19:59 [From Vicodin] tramadol AdvReac Severe Nausea Verified 07/24/18 19:59 - Social History Does the pt smoke?: Yes Smoking Status: Current every day smoker Does the pt drink ETOH?: Yes Does the pt have substance abuse?: Yes Substance Use and Type: Marijuana - Immunizations Immunizations are current?: Yes - POLST Patient has POLST: No PD ED PE NORMAL - Vitals Vital signs reviewed: Yes - General General: Alert and oriented X 3, No acute distress, Well developed/nourished - HEENT HEENT: Moist mucous membranes, Pharynx benign - Neck Neck: Supple, no meningeal sign, No adenopathy - Cardiac Cardiac: RRR, No murmur - Respiratory Respiratory: Clear bilaterally, Other (sternal area chest wall tenderness. ) - Abdomen Abdomen: Normal bowel sounds, Soft, Non tender, Non distended - Back Back: No CVA TTP, Other (tender lower back muscles both sides. Madna ) - Derm Derm: Normal color, Warm and dry - Extremities Extremities: No tenderness to palpate, Normal ROM s pain, No edema, No calf tenderness / cord - Neuro Neuro: Alert and oriented X 3, No motor deficit, Normal speech Results - Vitals Vitals: Vital Signs - 24 hr 07/24/18 07/24/18 07/24/18 19:55 20:58 22:28 Temperature 36.8 C 36.7 C Heart Rate 65 57 L 60 Respiratory 20 18 13 Rate Blood Pressure 149/120 H 133/97 H 192/106 H O2 Saturation 99 99 100 Oxygen O2 Source Room air - Labs Labs: Laboratory Tests 07/24/18 07/24/18 07/24/18 22:00 22:00 22:00 WBC 10.0 RBC 4.49 Hgb 13.1 Hct 39.3 MCV 87.6 MCH 29.2 MCHC 33.3 RDW 15.5 H Plt Count 263 MPV 8.2 Neut # (Auto) 4.9 Lymph # (Auto) 4.6 H Twiggs # (Auto) 0.4 Eos # (Auto) 0.0 Baso # (Auto) 0.1 Absolute Nucleated RBC 0.01 Nucleated RBC % 0.1 Sodium 138 Potassium 3.5 Chloride 105 Carbon Dioxide 24 Anion Gap 9.0 BUN 14 Creatinine 0.6 Estimated GFR (MDRD) 113 Glucose 84 Calcium 8.8 Total Bilirubin 0.4 AST 15 ALT 14 Alkaline Phosphatase 56 Troponin I < 0.04 Total Protein 6.3 L Albumin 3.6 Globulin 2.7 Albumin/Globulin Ratio 1.3 Lipase 33 - Rads (name of study) chest xray Radiology: Prelim report reviewed (no acute process), See rad report PD MEDICAL DECISION MAKING - ED course Complexity details: reviewed results, considered differential (seems like chronic back pain exac. The chest pain component is seeming like musculoskeletal with spasms. CXR, ECG, labs are okay. Clinically low suspicion for clots. ), d/w patient Departure - Departure Disposition: 01 Home, Self Care Clinical Impression: Acute exacerbation of chronic low back pain Chest pain Qualifiers: Chest pain type: precordial pain Qualified Code(s): R07.2 - Precordial pain Condition: Stable Record reviewed to determine appropriate education?: Yes Instructions: ED Chest Pain Atypical Unkn Cause Prescriptions: Dexamethasone [Decadron] 4 mg PO DAILY #5 tablet Methocarbamol [Robaxin-750] 750 mg PO BID #20 tablet Oxycodone HCl/Acetaminophen [Percocet 5-325 mg Tablet] 1 each PO TID PRN #20 tablet PRN Reason: pain Comments: Continue usual medications. Robaxin muscle relaxant as needed for spasms. Oxy codone as needed for pain. Follow-up with your primary care regarding further prescriptions. Decadron steroid for inflammation daily for the next 5 days. Your EKG chest x-ray and blood tests are normal so no signs of more significant causes of the chest pain. Discharge Date/Time: 07/24/18 23:31
[2018-07-24] MEDS ORDERED: METHOCARBAMOL 500 MG TABLET PO STA (21:47)
[2018-07-24] MEDS ORDERED: CHERRY SYRUP 10 ML UDC PO ONE (21:47)
[2018-07-24] MEDS ORDERED: DEXAMETHASONE 10 MG/ML VIAL PO STA (21:47)
[2018-07-24] MEDS ORDERED: oxyCODONE 5 MG TABLET PO STA (21:47)
[2018-07-24] MEDS ORDERED: KETOROLAC 30 MG/ML VIAL IM STA (21:47)
[2018-07-24] MEDS ORDERED: MAG HYDROX/AL HYDROX/SIMETH 30 ML UDC PO STA (21:47)
[2018-07-24 22:14] LABS: BASOPHILS # (AUTO) 0.1 10^3/uL (0.0-0.1); BASOPHILS % (AUTO) 0.7 %; EOSINOPHILS % (AUTO) 0.4 %; HGB - HEMOGLOBIN 13.1 g/dL (12.0-16.0); LYMPHOCYTES # (AUTO) 4.6 10^3/uL (1.5-3.5); LYMPHOCYTES % (AUTO) 45.7 %; MEAN CORPUSCULAR HEMOGLOBIN 29.2 pg (27.0-31.0); MEAN CORPUSCULAR HGB CONC 33.3 g/dL (32.0-36.0); MEAN CORPUSCULAR VOLUME 87.6 fL (81.0-99.0); MEAN PLATELET VOLUME 8.2 fL (7.9-10.8); MONOCYTES # (AUTO) 0.4 10^3/uL (0.0-1.0); MONOCYTES % (AUTO) 4.5 %; NEUTROPHILS # (AUTO) 4.9 10^3/uL (1.5-6.6); NEUTROPHILS % (AUTO) 48.7 %; PLT - PLATELET COUNT 263 10^3/uL (130-450); RED BLOOD COUNT 4.49 10^6/uL (4.20-5.40); RED CELL DISTRIBUTION WIDTH 15.5 % (12.0-15.0)
--- NOTE | 2018-07-24 22:25 | XRAY Report ---
Reason: chest pain and dyspnea Procedure Date: 07/24/2018 Accession Number: [id number] / [id number] Procedure: XR - Chest 2 View X-Ray CPT Code: 30319 FULL RESULT: EXAM: CHEST RADIOGRAPHY EXAM DATE: 07/24/2018 10:08 PM. CLINICAL HISTORY: Chest pain and dyspnea. COMPARISON: RIBS W/PA CHEST LT 07/03/2018 12:38 AM. TECHNIQUE: 2 views. FINDINGS: Lungs/Pleura: No dense consolidation. No large effusion or pneumothorax. No pulmonary edema. Mediastinum: Heart and mediastinal contours are unremarkable. Other: None. IMPRESSION: No acute radiographic pulmonary abnormalities. RADIA
[2018-07-24 22:28] VITALS: BP 192/106
[2018-07-24 22:29] LABS: ALBUMIN 3.6 g/dL (3.2-5.5); ALBUMIN/GLOBULIN RATIO 1.3 (1.0-2.2); BILIRUBIN,TOTAL 0.4 mg/dL (0.2-1.0); CALCIUM 8.8 mg/dL (8.5-10.3); CREATININE 0.6 mg/dL (0.4-1.0); TOTAL PROTEIN 6.3 g/dL (6.7-8.2)
[2018-07-24] MEDS ORDERED: oxyCODONE/ACET 5/325 Prepack 4 PO STA (22:56)
== END 2018-07-24 23:31 | disposition home or self-care (01) ==
LOC: ED 19:48
DX: M54.5 Low back pain (principal); G89.29 Other chronic pain; R07.2 Precordial pain; F17.200 Nicotine dependence, unspecified, uncomplicated
CPT/HCPCS: 36415; 71046; 80053; 83690; 84484; 85025; 93005; 96372; 99283; 99284; A9270

== ENCOUNTER 2018-09-27 13:38 | Outpatient (CLI) | payer MEDICAID ==
--- NOTE | 2018-09-27 15:37 | Ultrasound Report ---
Reason: DYSPAREUNIA,PREOPERATIVE EXAM,DYSFUNCTIONAL UTERIN Procedure Date: 09/27/2018 Accession Number: [id number] / [id number] Procedure: US - Pelvic w/Transvaginal CPT Code: FULL RESULT: EXAM: PELVIC ULTRASOUND EXAM DATE: 09/27/2018 02:02 PM. CLINICAL HISTORY: Dyspareunia, preoperative exam, dysfunctional uterine bleeding. COMPARISON: None. TECHNIQUE: Realtime transabdominal pelvic scan performed to identify the uterus and adnexa and as an overview of other pelvic structures, followed by transvaginal scan to provide greater detail of the uterus and adnexa, with static image documentation. FINDINGS: Uterus: 9.8 x 4.0 x 5.6 cm, volume 114 cc. Anteverted position. Normal overall size and echotexture. Masses: None. Endometrium: 8 mm. A potential mildly hypoechoic mass lesion about the fundal endometrium measures approximately 1.2 x 1.3 x 1.4 cm. No hypervascularity documented. Cervix: Unremarkable. Right Ovary: 3.2 x 2.4 x 2.6 cm, volume 10.4 cc. Normal echotexture and blood flow. Left Ovary: 2.2 x 1.3 x 1.4 cm, volume 2.1 cc. Normal echotexture and blood flow. A small simple cyst measures 1.1 cm. Free Fluid: None. Other: None. IMPRESSION: Ill-defined hypoechoic poorly vascularized potential fundal endometrial lesion measuring up to 1.4 cm. Would suggest a follow-up ultrasound within one week after the start of patient's next menstrual cycle to see if this region persists. RADIA
== END 2018-09-27 13:39 | disposition home or self-care (01) ==
LOC: DI 13:38
PROVIDERS: ATTEND Obstetrics & Gynecology
DX: Z01.818 Encounter for other preprocedural examination (principal); N93.8 Other specified abnormal uterine and vaginal bleeding; N94.10 Unspecified dyspareunia
CPT/HCPCS: 76830; 76856

== ENCOUNTER 2018-10-07 12:59 | Emergency (ER) | payer MEDICAID ==
[2018-10-07 13:13] VITALS: BP 143/98
--- NOTE | 2018-10-07 13:57 | ED Physician Documentation ---
History of Present Illness - Stated complaint Stated Complaint: INCISION OPEN S/P SURGERY - Chief complaint Chief Complaint: Wound - History obtained from History obtained from: Patient - History of Present Illness Timing: Today - Additonal information Additional information: Patient is a 38-year-old female who underwent an elective hysterectomy yesterday and now presenting with concerns for opening of wounds.Patient reports that it was otherwise uncomplicated surgery and laparoscopic. Patient has multiple wounds that have bruising, but no abnormal drainage or redness. No significant tenderness. Patient is worried that several of the wounds are slightly open.Patient denies abdominal pain, fever, chills, vomiting, urinary changes, or stool changes. No other improving or worsening factors noted. 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 HEENT: None Psych: Depression, Anxiety, Panic attacks, Post traumatic stress disorder Musculoskeletal: Osteoarthritis, Chronic back pain - Past Surgical History Past Surgical History: Yes /VICE PRESIDENT COMPLIANCE: section, Hysterectomy HEENT: Tonsil/Adenoidectomy - Present Medications Home Medications: Ambulatory Orders Medication Instructions Recorded Confirmed Pregabalin [Lyrica] 1 cap PO DAILY 02/02/16 05/25/18 metFORMIN [Glucophage] 1 tab PO TID 02/02/16 05/25/18 Nabumetone 500 mg PO DAILY 03/25/16 05/29/16 Omeprazole 40 mg PO 09/22/17 Prazosin HCl 2 mg PO 09/22/17 Venlafaxine ER [Effexor ER] 150 mg PO DAILY 02/10/18 05/25/18 Sumatriptan Succinate [Imitrex] 50 mg PO DAILY PRN #10 tablet 02/14/18 05/25/18 PARoxetine [Paxil] 10 mg PO DAILY 05/25/18 Ibuprofen 800 mg PO TID #60 tablet 07/03/18 Methocarbamol [Robaxin-750] 750 mg PO BID #20 tablet 07/24/18 Oxycodone HCl/Acetaminophen 1 each PO TID PRN #20 tablet 07/24/18 [Percocet 5-325 mg Tablet] dexAMETHasone [Decadron] 4 mg PO DAILY #5 tablet 07/24/18 Spironolactone 50 mg PO DAILY 10/07/18 10/07/18 - Allergies Allergies/Adverse Reactions: Allergies Allergy/AdvReac Type Severity Reaction Status Date / Time Penicillins Allergy Severe Respiratory Verified 10/07/18 14:01 hydrocodone bitartrate * AdvReac Severe Nausea Verified 10/07/18 14:01 [From Vicodin] tramadol AdvReac Severe Nausea Verified 10/07/18 14:01 - Social History Does the pt smoke?: Yes Smoking Status: Current every day smoker Does the pt drink ETOH?: Yes Does the pt have substance abuse?: Yes - Immunizations Immunizations are current?: Yes - POLST Patient has POLST: No PD ED PE NORMAL - Vitals Vital signs reviewed: Yes - General General: Alert and oriented X 3, No acute distress, Well developed/nourished - HEENT HEENT: Atraumatic, Moist mucous membranes - Respiratory Respiratory: No respiratory distress - Abdomen Abdomen: Soft, Non tender, Non distended - Derm Derm: Warm and dry, No rash, Other (Several laparoscopic surgical wounds present with surrounding ecchymosis and small amount of gapping that is incredibly superficial. No signs of infection, drainage, or other complication. No tenderness to palpation.) - Extremities Extremities: No deformity, No tenderness to palpate - Neuro Neuro: Alert and oriented X 3, No motor deficit, No sensory deficit - Psych Psych: Normal mood, Normal affect Results - Vitals Vitals: Vital Signs - 24 hr 10/07/18 13:07 Temperature 36.6 C Heart Rate 92 Respiratory 16 Rate Blood Pressure 143/98 H O2 Saturation 99 Oxygen O2 Source Room air PD MEDICAL DECISION MAKING - ED course Complexity details: considered differential, d/w patient ED course: Patient presenting 1 day status post hysterectomy that was done laparoscopically with minimal complaints except for concern for wound dehiscence. No signs of wound infection or other complication noted. Patient does have small gapping at several wounds which are extremely superficial and will not require closure. Advised on appropriate wound care. Otherwise, do not feel patient is at risk for intra-abdominal abscess or other systemic illness at this time. Do not feel she is requiring invasive testing or imaging. Patient requesting discharge home immediately and declined discharge paperwork as her has to get to work, but she Voiced understanding of wound care recommendations, return precautions, and follow-up.
== END 2018-10-07 14:10 | disposition home or self-care (01) ==
LOC: ED 12:59
DX: T81.89XA Other complications of procedures, not elsewhere classified, initial encounter (principal); Y83.8 Other surgical procedures as the cause of abnormal reaction of the patient, or of later complication, without mention of misadventure at the time of the procedure; Z90.710 Acquired absence of both cervix and uterus; F17.200 Nicotine dependence, unspecified, uncomplicated
CPT/HCPCS: 99282; 99283

== ENCOUNTER 2019-01-03 01:03 | Inpatient (IN) | payer MEDICAID ==
--- NOTE | 2019-01-03 01:42 | ED Physician Documentation ---
History of Present Illness - Stated complaint Stated Complaint: ABD PX, SHOULDER PX - Chief complaint Chief Complaint: Abd Pain - History obtained from History obtained from: Patient - History of Present Illness Timing: How many hours ago (24) Pain level max: 10 Pain level now: 10 - Additonal information Additional information: 38-year-old female presents with 24 hours of lower abdominal pain. This is spread across the entire abdomen. Also states has right shoulder pain. She states that she had intercourse last night with a "well endowed man". She states the pain started about an hour after that. She took her usual Percocet at home without relief. No fevers. No vaginal bleeding or discharge. No worse with movement and palpation. Nothing makes it better. Has had some nausea but no vomiting. 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: None Psych: Depression, Anxiety, Panic attacks, Post traumatic stress disorder Musculoskeletal: Osteoarthritis, Chronic back pain - Past Surgical History Past Surgical History: Yes /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: section, Hysterectomy HEENT: Tonsil/Adenoidectomy - Present Medications Home Medications: Ambulatory Orders Medication Instructions Recorded Confirmed Pregabalin [Lyrica] 1 cap PO DAILY 02/02/16 05/25/18 metFORMIN [Glucophage] 1 tab PO TID 02/02/16 05/25/18 Nabumetone 500 mg PO DAILY 03/25/16 05/29/16 Omeprazole 40 mg PO 09/22/17 Prazosin HCl 6 mg PO 09/22/17 Venlafaxine ER [Effexor ER] 150 mg PO DAILY 02/10/18 05/25/18 Sumatriptan Succinate [Imitrex] 50 mg PO DAILY PRN #10 tablet 02/14/18 05/25/18 Methocarbamol [Robaxin-750] 750 mg PO BID #20 tablet 07/24/18 Oxycodone HCl/Acetaminophen 1 each PO TID PRN #20 tablet 07/24/18 [Percocet 5-325 mg Tablet] Spironolactone 100 mg PO DAILY 10/07/18 10/07/18 - Allergies Allergies/Adverse Reactions: Allergies Allergy/AdvReac Type Severity Reaction Status Date / Time Penicillins Allergy Severe Respiratory Verified 01/03/19 01:15 hydrocodone bitartrate * AdvReac Severe Nausea Verified 01/03/19 01:15 [From Vicodin] tramadol AdvReac Severe Nausea Verified 01/03/19 01:15 - Social History Does the pt smoke?: Yes Smoking Status: Current every day smoker Does the pt drink ETOH?: Yes Does the pt have substance abuse?: Yes - Immunizations Immunizations are current?: Yes - POLST Patient has POLST: No PD ED PE NORMAL - Vitals Vital signs reviewed: Yes - General General: Alert and oriented X 3, No acute distress, Other (Morbidly obese female) - HEENT HEENT: Moist mucous membranes, Pharynx benign - Neck Neck: Supple, no meningeal sign - Cardiac Cardiac: RRR - Respiratory Respiratory: No respiratory distress, Clear bilaterally - Abdomen Abdomen: Other (Diffusely tender palpation without peritoneal signs) - Back Back: No CVA TTP - Derm Derm: Warm and dry - Extremities Extremities: No calf tenderness / cord - Neuro Neuro: Alert and oriented X 3 Results - Vitals Vitals: Vital Signs - 24 hr 01/03/19 01/03/19 01/03/19 01:10 03:15 03:36 Temperature 36.4 C L 36.9 C Heart Rate 86 93 94 Respiratory 18 17 15 Rate Blood Pressure 141/82 H 129/94 H 132/76 H O2 Saturation 97 100 98 01/03/19 01/03/19 01/03/19 05:00 05:15 06:41 Temperature 36.8 C Heart Rate 88 82 79 Respiratory 17 17 17 Rate Blood Pressure 140/82 H 140/82 H 112/89 H O2 Saturation 100 97 99 Oxygen O2 Source Room air - Labs Labs: Laboratory Tests 01/03/19 01/03/19 01/03/19 01:35 01:40 01:40 WBC 13.6 H RBC 4.21 Hgb 12.8 Hct 37.5 MCV 89.1 MCH 30.4 MCHC 34.1 RDW 13.8 Plt Count 220 MPV 9.4 Neut # (Auto) 8.4 H Lymph # (Auto) 4.3 H [place] # (Auto) 0.8 Eos # (Auto) 0.0 Baso # (Auto) 0.0 Absolute Nucleated RBC 0.00 Nucleated RBC % 0.0 Sodium 138 Potassium 3.7 Chloride 100 L Carbon Dioxide 29 Anion Gap 9.0 BUN 16 Creatinine 0.7 Estimated GFR (MDRD) 95 Glucose 87 Calcium 9.2 Total Bilirubin 0.7 AST 14 ALT 14 Alkaline Phosphatase 50 Total Protein 6.8 Albumin 3.8 Globulin 3.0 Albumin/Globulin Ratio 1.3 Lipase 20 L Urine Color YELLOW Urine Clarity CLEAR Urine pH 7.0 Ur Specific [place] 1.020 Urine Protein 30 H Urine Glucose (UA) NEGATIVE Urine Ketones NEGATIVE Urine Occult Blood TRACE-LYSE Urine Nitrite NEGATIVE Urine Bilirubin NEGATIVE Urine Urobilinogen 0.2 (NORMAL) Ur Leukocyte Esterase TRACE H Urine RBC 0-5 Urine WBC 0-3 Ur Squamous Epith Cells MANY Squamous H Urine Bacteria Rare Ur Microscopic Review INDICATED Urine Culture Comments NOT INDICATED - Rads (name of study) CT abd/pelvis Radiology: Prelim report reviewed, EMP read contemporaneously, See rad report (Mild to moderate upper abdominal free air. Only site of inflammation is seen at the vaginal fornix however. Given history of recent intercourse and recent hysterectomy, consider vaginal perforation and free air related to that. Suggest gynecologic exam to well-evaluate the vaginal integrity prior to looking for upper abdominal source (gastroduodenal) or sigmoid colonic source of the free air. ) PD MEDICAL DECISION MAKING - ED course Complexity details: reviewed results, re-evaluated patient, considered differential, d/w patient, d/w mental hygiene consultant (0300 - Dr. Ly.) ED course: 38-year-old female presents to the emergency department with abdominal pain. Has free air on CT scan. Unclear etiology. Consulted general surgery, Dr. Ly (0300) he will come and evaluate the patient. She may need a vaginal exam under anesthesia and will likely need gynecology consulted as well. Will allow Dr. Ly to consult first and then consult gynecology. Patient is well-appearing, nontoxic. Afebrile. Signed out to oncoming emergency department physician. This document was made in part using voice recognition software. While efforts are made to proofread this document, sound alike and grammatical errors may occur. D/w Dr. Young ([employer]) at 0715 and will come evaluate the patient. Departure - Departure Disposition: ED Transfer to [facility] Clinical Impression: Intra-abdominal free air of unknown etiology Abdominal pain Qualifiers: Abdominal location: unspecified location Qualified Code(s): R10.9 - Unspecified abdominal pain Condition: Stable
[2019-01-03 01:53] LABS: BASOPHILS % (AUTO) 0.2 %; EOSINOPHILS % (AUTO) 0.2 %; HGB - HEMOGLOBIN 12.8 g/dL (12.0-16.0); LYMPHOCYTES # (AUTO) 4.3 10^3/uL (1.5-3.5); LYMPHOCYTES % (AUTO) 31.3 %; MEAN CORPUSCULAR HEMOGLOBIN 30.4 pg (27.0-31.0); MEAN CORPUSCULAR HGB CONC 34.1 g/dL (32.0-36.0); MEAN CORPUSCULAR VOLUME 89.1 fL (81.0-99.0); MEAN PLATELET VOLUME 9.4 fL (7.9-10.8); MONOCYTES # (AUTO) 0.8 10^3/uL (0.0-1.0); MONOCYTES % (AUTO) 6.1 %; NEUTROPHILS # (AUTO) 8.4 10^3/uL (1.5-6.6); NEUTROPHILS % (AUTO) 61.8 %; PLT - PLATELET COUNT 220 10^3/uL (130-450); RED BLOOD COUNT 4.21 10^6/uL (4.20-5.40); RED CELL DISTRIBUTION WIDTH 13.8 % (12.0-15.0); WHITE BLOOD COUNT 13.6 x10^3/uL (4.8-10.8)
[2019-01-03 01:55] LABS: BILIRUBIN,URINE NEGATIVE (NEGATIVE); CLARITY,URINE CLEAR (CLEAR); GLUCOSE, URINE (UA) NEGATIVE (NEGATIVE); KETONES,URINE (UA) NEGATIVE (NEGATIVE); LEUKOCYTE ESTERASE, URINE TRACE (NEGATIVE); NITRITE,URINE NEGATIVE (NEGATIVE); OCCULT BLOOD,URINE TRACE-LYSE (NEGATIVE); PROTEIN,URINE 30 mg/dL (NEGATIVE); UROBILINOGEN,URINE 0.2 (NORMAL) E.U./dL (NORMAL)
[2019-01-03 02:04] LABS: BACTERIA,URINE Rare /HPF (None Seen); RBC,URINE 0-5 /HPF (0-5); SQUAMOUS EPITHELIAL CELL,UR MANY Squamous (<= Few)
[2019-01-03 02:06] LABS: ALBUMIN 3.8 g/dL (3.2-5.5); ALBUMIN/GLOBULIN RATIO 1.3 (1.0-2.2); BILIRUBIN,TOTAL 0.7 mg/dL (0.2-1.0); CALCIUM 9.2 mg/dL (8.5-10.3); CREATININE 0.7 mg/dL (0.4-1.0); TOTAL PROTEIN 6.8 g/dL (6.7-8.2)
[2019-01-03] MEDS ORDERED: IOVERSOL 320 100 ML VIAL IVP ONE ×2 (02:43→02:57)
[2019-01-03] MEDS ORDERED: HYDROmorphone 1 MG/ML CARPUJECT IVP STA ×2 (02:55→05:04)
[2019-01-03] MEDS ORDERED: MOXIFLOXACIN 400MG/250ML IV 400 MG/250 ML BAG IV STA (02:59)
--- NOTE | 2019-01-03 03:33 | CT Report ---
Reason: diffuse abd pain Procedure Date: 01/03/2019 Accession Number: [id number] / [id number] Procedure: CT - Abdomen/Pelvis W CPT Code: FULL RESULT: EXAM: CT ABDOMEN AND PELVIS EXAM DATE: 01/03/2019 02:58 AM CLINICAL HISTORY: Diffuse abdominal pain. Recent intercourse with pain. COMPARISONS: PELVIC W/TRANSVAGINAL 09/27/2018 2:02 PM. TECHNIQUE: Routine helical CT imaging was performed through the abdomen and pelvis. IV contrast: Yes. Enteric contrast: No. Reconstructions: Coronal and sagittal. In accordance with CT protocol optimization, one or more of the following dose reduction techniques were utilized for this exam: automated exposure control, adjustment of mA and/or KV based on patient size, or use of iterative reconstructive technique. FINDINGS: Lung Bases: Unremarkable. Liver: Unremarkable. No suspicious masses. Gallbladder/Bile Ducts: Unremarkable. Spleen: Unremarkable. Pancreas: Unremarkable. Adrenal Glands: Unremarkable. Kidneys: Unremarkable. No suspicious masses or hydronephrosis. Peritoneal Cavity/Bowel: No bowel obstruction or inflammatory process seen. Mild to moderate free air without significant free fluid. Most of the air is upper abdominal. No masses or adenopathy. The appendix is normal. No excessive stool burden. Pelvic Organs: Post-hysterectomy with no adnexal masses seen. Inflammatory stranding adjacent to the vaginal fornix. The bladder appears within normal limits. Vasculature: No aneurysms or other significant abnormality. Bones: No significant abnormality. Other: None. IMPRESSION: Mild to moderate upper abdominal free air. Only site of inflammation is seen at the vaginal fornix however. Given history of recent intercourse and recent hysterectomy, consider vaginal perforation and free air related to that. Suggest gynecologic exam to well-evaluate the vaginal integrity prior to looking for upper abdominal source (gastroduodenal) or sigmoid colonic source of the free air. RADIA The above call report findings were discussed with Dr. Munir Crespo by Dr. Emerson Hinkle at 03:25 AM on 01/03/2019.
[2019-01-03] MEDS ORDERED: LORazepam 2 MG/ML VIAL IVP STA (06:31)
--- NOTE | 2019-01-03 08:13 | CONSULTATION NOTE ---
Referring Provider Name of Referring Provider:: Dr. Rafael Moseley Consult Date: 01/03/19 Chief Complaint - Chief Complaint Chief Complaint: Free air History of Present Illness - Admitted From Admitted From:: Not admitted seen in emergency department - History Obtained From Records Reviewed: Yes but operative report from September is not available History obtained from: Patient Exam Limitations: Patient is somewhat somnolent due to Ativan but gives a decent history - History of Present Illness HPI Comment/Other: Dr. Rafael Moseley asked that I see this 38-year-old female for the presence of free air in her abdomen. She was evaluated in room 9 at [facility]'s emergency department. The abdominal pain started immediately following "sex with a very well endowed man." The patient describes the sex as painful, "but in kind of a good way." The abdominal pain is now referred primarily to her right shoulder she cannot find a comfortable position for her shoulder. There is no nausea and vomiting. There is no hematemesis, melena, or mckayla tochezia. She does have a history of ulcers. There has been no other antecedent trauma. 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, Hysterectomy HEENT: reports: Tonsil/Adenoidectomy - POLST Patient has POLST: No Meds/Allgy - Home Medications Home Medications: Ambulatory Orders Medication Instructions Recorded Confirmed Pregabalin [Lyrica] 1 cap PO DAILY 02/02/16 05/25/18 metFORMIN [Glucophage] 1 tab PO TID 02/02/16 05/25/18 Nabumetone 500 mg PO DAILY 03/25/16 05/29/16 Omeprazole 40 mg PO 09/22/17 Prazosin HCl 6 mg PO 09/22/17 Venlafaxine ER [Effexor ER] 150 mg PO DAILY 02/10/18 05/25/18 Sumatriptan Succinate [Imitrex] 50 mg PO DAILY PRN #10 tablet 02/14/18 05/25/18 Methocarbamol [Robaxin-750] 750 mg PO BID #20 tablet 07/24/18 Oxycodone HCl/Acetaminophen 1 each PO TID PRN #20 tablet 07/24/18 [Percocet 5-325 mg Tablet] Spironolactone 100 mg PO DAILY 10/07/18 10/07/18 - Allergies Allergies/Adverse Reactions: Allergies Allergy/AdvReac Type Severity Reaction Status Date / Time Penicillins Allergy Severe Respiratory Verified 01/03/19 01:15 hydrocodone bitartrate * AdvReac Severe Nausea Verified 01/03/19 01:15 [From Vicodin] tramadol AdvReac Severe Nausea Verified 01/03/19 01:15 Review of Systems - Constitutional Constitutional: reports: Other (I did not do an extensive review of systems due to the patient's somnolence as obtaining this history would be questionable.) Exam - Vital Signs Reviewed Vital Signs: Yes Vital Signs: Vital Signs x48h Temp Pulse Resp BP Pulse Ox 01/03/19 07:58 62 15 115/65 97 01/03/19 06:41 36.8 C 79 17 112/89 H 99 01/03/19 05:15 82 17 140/82 H 97 01/03/19 05:00 88 17 140/82 H 100 01/03/19 03:36 36.9 C 94 15 132/76 H 98 01/03/19 03:15 93 17 129/94 H 100 01/03/19 01:10 36.4 C L 86 18 141/82 H 97 - Physical Exam General Appearance: positive: No acute distress Eyes Bilateral: positive: No lid inflammation, Conjunctivae nml, No scleral icterus ENT: positive: Dry mucous membranes Neck: positive: Trachea midline Respiratory: positive: Chest non-tender, No respiratory distress, Breath sounds nml Cardiovascular: positive: Regular rate & rhythm Abdomen: positive: Tenderness (Very mild.) Skin: positive: Color nml Extremities: positive: Non-tender, Nml appearance Neurologic/Psychiatric: positive: Oriented x3, Motor nml, Sensation nml, Mood/affect nml (Actually she is somnolent due to Ativan but without the Ativan I think that her mood and affect would be appropriate.) Conclusion/Plan - Diagnosis Diagnosis: Ruptured vaginal cuff or wall secondary to vigorous penetrative sex resulting in free air - Plan Plan: In short, I will defer to my gynecologic colleague, but I was asked for my opinion and I will provide one. I think that the patient should have a speculum exam to determine the extent of trauma. If a relatively small rent or tear is seen then I would not operate, opting to let the injury heal on its own. Considering the injury and the patient's status as a diabetic, I would start the patient on prophylactic antibiotics. The free air will resolve on its own. I explained to the patient that this may take a week. The reason I would not operate is that this tissue would not likely except stitches particularly well and if allowed to heal the sutures if required would have a better chance at a therapeutic result. As I explained to the patient this injury is not likely lethal nor likely to result in a long-term problem. Of course, if no surgery is done and this injury is allowed to heal on its own I would caution the patient against penetrative sex for at least 3 months and have the area reexamined prior to having sex again. I like to thank Dr. Rafael Moseley very much for the opportunity to participate in this patient's care. 45 minutes of [id number] time spent with the patient, the majority of which was spent in discussion, coordination of care, and completion of the requisite paperwork Tu disclaimer: This document was created in part using voice recognition technology. Because of the inherent limitations of the system ([employer] user manual states that the licensee understands that speech recognition is a statistical process and that recognition errors are inherent in the process), occasional same sounding word substitutions and grammatical errors do occur and persist despite proofreading. Please read this document for context. - Lab Results Lab results reviewed: Yes Fish Bones: 01/03/19 01:40 01/03/19 01:40 - Diagnostic Imaging Results Diagnostic Imaging Results: positive: Final report reviewed, Read independently Diagnostic Imaging Results Comments: Free air likely secondary to ruptured vagina or vaginal cuff.
[2019-01-03] MEDS ORDERED: SODIUM CHLORIDE 0.9% IV ONE (09:00)
[2019-01-03] MEDS ORDERED: GENTAMICIN PER PHARMACY IV ONE (09:00)
[2019-01-03] MEDS ORDERED: ONDANSETRON 4 MG/2 ML VIAL IVP PRN (09:02)
[2019-01-03] MEDS ORDERED: LORazepam 2 MG/ML VIAL IVP PRN (09:02)
[2019-01-03] MEDS ORDERED: ceFAZolin 2 GM in SODIUM CHLORIDE 0.9% 100ML 100 ML IV STA (09:11)
--- NOTE | 2019-01-03 09:12 | ED Physician Documentation ---
ED Addendum - Addendum Addendum: 01/03/19 09:10 Patient was seen by surgery Dr. goetz and ROOM SERVICE WAITER/WAITRESS Dr. Young. Dr. Young performed a pelvic examination here in the ER and saw a dehiscence of the vaginal cuff from her prior hysterectomy. This is felt to be the cause of the free air on CT scan. With concern of infection from vaginal source intra- abdominal he, Dr. Young is going to treat the patient in the hospital with antibiotics and sequential exams to ensure no worsening symptoms. Disposition: hospitalized, stable
[2019-01-03] MEDS ORDERED: oxyCODONE 5 MG TABLET PO STA (09:22)
[2019-01-03] MEDS ORDERED: SODIUM CHLORIDE FLUSH 0.9% 10 ML SYRINGE ONE (10:24)
[2019-01-03] MEDS ORDERED: SODIUM CHLORIDE 0.9% 500 ML ONE (10:25)
[2019-01-03] MEDS: KETOROLAC 30 MG/ML VIAL IVP STA ×2 (10:52→11:29)
[2019-01-03] MEDS ORDERED: ceFAZolin 1 GM VIAL ONE (11:15)
[2019-01-03] MEDS: ACETAMINOPHEN 500 MG TABLET PO SCH ×2 (11:29→18:08)
[2019-01-03] MEDS: ceFAZolin 2 GM in SODIUM CHLORIDE 0.9% 100ML 100 ML IV SCH ×2 (11:29→18:44)
[2019-01-03] MEDS: metroNIDAZOLE 500 MG/100 ML 500 MG/100 ML BAG IV SCH ×2 (12:54→19:17)
[2019-01-03] MEDS ORDERED: NICOTINE 14 MG PATCH TOP SCH (13:00)
[2019-01-03] MEDS: oxyCODONE 5 MG TABLET PO PRN ×2 (15:26→18:08)
[2019-01-03] MEDS ORDERED: SODIUM CHLORIDE 0.9% IV SCH (20:00)
[2019-01-03] MEDS ORDERED: GENTAMICIN IV SCH (20:00)
[2019-01-03] MEDS: SODIUM CHLORIDE 0.9% 1,000 ML IV SCH (21:10)
[2019-01-03 21:35] LABS: TRICHOMONAS VAGINALIS DNA NEGATIVE (NEGATIVE)
[2019-01-03 23:27] VITALS: BP 99/47
[2019-01-04] MEDS: ceFAZolin 2 GM in SODIUM CHLORIDE 0.9% 100ML 100 ML IV SCH ×2 (00:14→06:03)
[2019-01-04] MEDS: oxyCODONE 5 MG TABLET PO PRN ×2 (00:16→06:02)
[2019-01-04] MEDS ORDERED: SODIUM CHLORIDE 0.9% 100ML 100 ML IV ONE (00:16)
[2019-01-04] MEDS: metroNIDAZOLE 500 MG/100 ML 500 MG/100 ML BAG IV SCH (02:12)
[2019-01-04] MEDS: ACETAMINOPHEN 500 MG TABLET PO SCH ×2 (02:12→10:05)
[2019-01-04] MEDS: SODIUM CHLORIDE 0.9% 1,000 ML IV SCH (08:01)
[2019-01-04] MEDS ORDERED: METHOCARBAMOL 500 MG TABLET PO SCH (09:00)
[2019-01-04] MEDS ORDERED: FAMOTIDINE 20 MG TABLET PO SCH (09:00)
[2019-01-04] MEDS ORDERED: PREGABALIN 100 MG CAPSULE PO SCH (09:00)
[2019-01-04] MEDS ORDERED: SPIRONOLACTONE 25 MG TABLET PO SCH (09:00)
[2019-01-04] MEDS ORDERED: PREGABALIN 25 MG CAPSULE PO SCH (09:00)
[2019-01-04] MEDS ORDERED: VENLAFAXINE ER 75 MG CAPSULE PO SCH (09:00)
[2019-01-04 09:27] LABS: GENTAMICIN,RANDOM 4.2 ug/mL
--- NOTE | 2019-01-04 14:24 | HISTORY & PHYSICAL EXAMINATION ---
Physician: Jr Young MD DATE OF ADMISSION: 01/03/2019 DATE OF DISCHARGE: 01/04/2019 EVENT OF THIS MORNING: This morning, patient received 10 mg of oxycodone at roughly 6:00. She was complaining of pain at that time. Following receiving her medication, she was observed to be talking on her cell phone, resting comfortably without any apparent problems. However, when she felt she was being observed she became very demonstrative of her discomfort. During this entire time, her vital signs were within normal limits. Her pulse was running in the 50 to 60 range. She showed no evidence of any hypertensive or tachypnea. She also was afebrile. She complained of her IV irritating her and demanded that it be removed. The nurse reminded her of the need to administer antibiotics, and she still demanded that it be removed. I arrived to see her and examined her for rounds this morning. Her exam was normal, heart and lungs. The abdominal was nontender initially when distracted with questions about the incisions from her previous laparoscopic surgery, but when asked about pain, she became once again demonstrative about her discomfort. I requested that a CBC be obtained to check for progress of her antibiotic therapy. She stated that she already had blood taken for a draw for her gentamicin and at that point refused. I requested once again, the IV be reinserted to restart her IV antibiotics. I also reminded her that this would also be utilized if needed for pain control. She relented, but then once again withdrew her consents. At this point, she requested to leave the hospital. I reminded her that she had an illness that needed antibiotic therapy and without this, she could become very sick. She raised the possibility about being transferred to [facility] where she had her original surgery. I told her we would arrange this for her if this is what her wishes were. However, with time, she became more agitated. I told her there was the option of possibly going with oral antibiotics, but it would not be what was recommended. Again, she raised the option about leaving against medical advice. I told her that we advised against it, but we could not keep her in the hospital. She was given a form to sign, which was signed by myself and the nurse, she refused to sign it herself. I offered her antibiotics orally that she can take at home, as well as oxycodone, which she may take with her. She took both of these prescriptions. I informed her that it was imperative that she follow up with someone, another doctor for her dehiscence of her vaginal apex. I have told her that she was growing group B strep out of the wound, and that it was imperative that she have antibiotics because the sequelae could lead to if not followed up. Patient walked out of the hospital on her own volition without assistance. She was seen by one of the hospital staff. TD: 01/04/2019 11:57 MTDD
[2019-01-04] MEDS ORDERED: PRAZOSIN 1 MG CAPSULE PO SCH (21:00)
[2019-01-05] MEDS ORDERED: metFORMIN 500 MG TABLET PO SCH (08:00)
--- NOTE | 2019-01-05 17:44 | PREOP HISTORY & PHYSICAL ---
DATE OF SERVICE: 01/03/2019 Physician: Jr Young MD IDENTIFICATION: Patient is a 38-year-old G1, P1 female who is status post laparoscopically-assisted vaginal hysterectomy 10/03/2018. This was done at [facility] in [place]. CHIEF COMPLAINT: Lower abdominal pain. HISTORY OF PRESENT ILLNESS: Patient states that Wednesday evening, she was having intercourse. Following this, she developed bleeding as well as pelvic pain. However, she states this was not terribly uncomfortable. She was doing well with her pain up until the morning of the , at which time she presented to the emergency department. As part of her workup, she had a CAT scan of the abdomen and pelvis and she was noted to have free air underneath the diaphragm. She was seen and evaluated by Dr. Gagan Ly for the possibility of a perforated bowel. However, at this particular time, he did not feel that was the case. She denies any history of any PID or STIs. She does smoke. She does have a history of polycystic ovary disease, but denies any diabetes. She denies any pelvic trauma. Denies use of any pelvic or vaginal toys. She had a LAVH 10/03/18 at [facility]. PAST MEDICAL HISTORY Positive for 1. PCOS. 2. Asthma. PAST SURGICAL HISTORY 1. Laparoscopically-assisted vaginal hysterectomy, 10/03 at [facility]. 2. She has also had a tonsillectomy and adenoidectomy. ALLERGIES 1. PENICILLIN. 2 HYDROCODONE. 3. TRAMADOL. CURRENT MEDICATIONS 1. Lyrica. 2. Glucophage. 3. Nabumetone. 4. Omeprazole. 5. Prazosin. 6. Effexor. 7. Imitrex. 8. Robaxin. 9. Oxycodone. 10. Tylenol/Percocet. 11. Spironolactone. HABITS: Patient smokes a pack of cigarettes per day. Denies use of any street or addictive drugs. SOCIAL HISTORY: Patient is not in a stable relationship at this time. She has partners, which vary. She does live with her child. PHYSICAL EXAMINATION VITAL SIGNS: Temperature is 36.8, pulse 78, respirations 17, blood pressure 112/89. HEENT: Pupils are equal and round. Extraocular muscles are intact. There is no evidence of any scleral icterus. Mouth is clear. Thyroid is not palpably enlarged. HEART: Regular rate and rhythm without murmurs. LUNGS: Lung schuler are clear without rales or wheezes. ABDOMEN: Shows multiple scars from previous laparoscopic surgeries. She is very corpulent this time. She shows some moderate tenderness in the pelvic area. PELVIC: Speculum examination reveals a watery discharge; however, there is no purulence to it at this time. At the apex of the vagina, there appears to be a defect, which was roughly 1 cm in size. Internal examination does show some tenderness in this area. LABORATORY DATA: CBC on admission shows a white count of 13.6, hemoglobin was 12.8, hematocrit was 37.5, platelets were 220. Her chemistries were within normal limits with the exception of a chloride, which was 100. IMPRESSION: A 38-year-old G2, P1, 3 months status post laparoscopically- assisted vaginal hysterectomy. She shows evidence of a dehiscence of the apex of the vagina. This is probably secondary to her smoking and possibly to aggressive intercourse. She shows no evidence of any bowel prolapse at this point. PLAN: At this particular time because of evidence of infection and a cuff cellulitis on the CAT scan, it is felt that it is important to go ahead and settle down any infection before attempting to do any suturing, if that is to be pursued. Because of her PENICILLIN ALLERGY, we will start her on Ancef. We will also place her on gentamicin as well as metronidazole. We will follow her course and changed her antibiotics as dictated. The possibility of proceeding on with a cuff closure might be entertained, but because of her smoking and poor tissue turgor, this may be postponed. TD: 01/05/2019 13:00 ANGELIQUE
== END 2019-01-04 10:35 | disposition left against medical advice (07) | DRG 863 ==
LOC: ED 01:03 → MS3 09:18
PROVIDERS: ADMIT Obstetrics & Gynecology; ATTEND Obstetrics & Gynecology
DX: T81.43XA Infection following a procedure, organ and space surgical site, initial encounter (principal); T81.31XA Disruption of external operation (surgical) wound, not elsewhere classified, initial encounter; B95.1 Streptococcus, group B, as the cause of diseases classified elsewhere; J45.909 Unspecified asthma, uncomplicated; F17.210 Nicotine dependence, cigarettes, uncomplicated; E78.00 Pure hypercholesterolemia, unspecified; E11.9 Type 2 diabetes mellitus without complications; K21.9 Gastro-esophageal reflux disease without esophagitis; F32.9 Major depressive disorder, single episode, unspecified; F41.9 Anxiety disorder, unspecified; F41.0 Panic disorder [episodic paroxysmal anxiety]; F43.10 Post-traumatic stress disorder, unspecified; M19.90 Unspecified osteoarthritis, unspecified site; G89.29 Other chronic pain; M54.9 Dorsalgia, unspecified; Z53.21 Procedure and treatment not carried out due to patient leaving prior to being seen by health care provider; Z79.84 Long term (current) use of oral hypoglycemic drugs; Z79.891 Long term (current) use of opiate analgesic; Z90.710 Acquired absence of both cervix and uterus; Z87.11 Personal history of peptic ulcer disease
CPT/HCPCS: 36415; 74177; 80053; 80170; 81001; 83690; 85025; 87070; 87205; 87491; 87591; 87661; 96365; 96375; 96376; 99284; 99285; A9270; J1170; J2060; Q9967; 81003; 87086

== ENCOUNTER 2019-01-13 21:54 | Emergency (ER) | payer MEDICAID ==
[2019-01-13 22:03] VITALS: BP 142/80
[2019-01-13] MEDS ORDERED: HYDROmorphone 1 MG/ML CARPUJECT IM STA (22:24)
--- NOTE | 2019-01-13 22:27 | ED Physician Documentation ---
PD HPI ABD PAIN - Stated complaint Stated Complaint: POST OP PX - Chief complaint Chief Complaint: Abd Pain - History obtained from History obtained from: Patient - History of Present Illness Timing - onset: Yesterday (38-year-old woman who had a hysterectomy a few months ago, she was admitted here recently for a vaginal cuff dehiscence but eventually signed out AGAINST MEDICAL ADVICE, "I needed to take care of some stuff before surgery." Made her way down to [place] and yesterday had a vaginal cuff repair. She has chronic pain, back pain, fibromyalgia, and at baseline is on Lyrica, oxycodone, nabumetone. Her pain is uncontrolled by 10 mg of oxycodone every 4 hours. She is also taking Tylenol, 1 g every 6 hours, and her baseline medications, the Lyrica and the nabumetone. She is having small amount of vaginal bleeding,, not currently needing a pad. No fevers. She has moved her bowels. No vomiting.) Review of Systems Constitutional: denies: Fever, Chills GI: reports: Abdominal Pain. 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 HEENT: None Psych: Depression, Anxiety, Panic attacks, Post traumatic stress disorder Musculoskeletal: Osteoarthritis, Chronic back pain Derm: None - Past Surgical History Past Surgical History: Yes /COMPUTER FORENSIC SPECIALIST: section, Hysterectomy, Other HEENT: Tonsil/Adenoidectomy - Present Medications Home Medications: Ambulatory Orders Medication Instructions Recorded Confirmed Pregabalin [Lyrica] 1 cap PO DAILY 02/02/16 05/25/18 metFORMIN [Glucophage] 1 tab PO TID 02/02/16 05/25/18 Nabumetone 500 mg PO DAILY 03/25/16 05/29/16 Omeprazole 40 mg PO 09/22/17 Prazosin HCl 6 mg PO 09/22/17 Venlafaxine ER [Effexor ER] 150 mg PO DAILY 02/10/18 05/25/18 Sumatriptan Succinate [Imitrex] 50 mg PO DAILY PRN #10 tablet 02/14/18 05/25/18 Methocarbamol [Robaxin-750] 750 mg PO BID #20 tablet 07/24/18 Oxycodone HCl/Acetaminophen 1 each PO TID PRN #20 tablet 07/24/18 [Percocet 5-325 mg Tablet] Spironolactone 100 mg PO DAILY 10/07/18 10/07/18 Morphine Ir [Ms Ir] 15 mg PO Q4H PRN #15 tablet 01/13/19 - Allergies Allergies/Adverse Reactions: Allergies Allergy/AdvReac Type Severity Reaction Status Date / Time Penicillins Allergy Severe Respiratory Verified 01/13/19 21:58 hydrocodone bitartrate * AdvReac Severe Nausea Verified 01/13/19 21:58 [From Vicodin] tramadol AdvReac Severe Nausea Verified 01/13/19 21:58 - Social History Does the pt smoke?: Yes Smoking Status: Current every day smoker Does the pt drink ETOH?: Yes Does the pt have substance abuse?: Yes - Immunizations Immunizations are current?: Yes - POLST Patient has POLST: No PD ED PE NORMAL - Vitals Vital signs reviewed: Yes - General General: Alert and oriented X 3, No acute distress - Abdomen Abdomen: Normal bowel sounds, Soft, Other (Minimal tenderness, its appropriate for her 1 day postoperative state. Steri-Strips in place without evidence of infection or dehiscence.) - Neuro Neuro: Alert and oriented X 3, Normal speech Results - Vitals Vitals: Vital Signs - 24 hr 01/13/19 21:58 Temperature 36.6 C Heart Rate 88 Respiratory 18 Rate Blood Pressure 142/80 H O2 Saturation 100 Oxygen O2 Source Room air PD MEDICAL DECISION MAKING - ED course ED course: This is a 38-year-old woman who presents with postoperative pain. At baseline she is already on pain medications, so there is some level of tolerance already. She is already taking an NSAID, Tylenol, and a TIO inhibitor. Departure - Departure Disposition: 01 Home, Self Care Clinical Impression: Postoperative abdominal pain Condition: Good Record reviewed to determine appropriate education?: Yes Instructions: Abdominal Pain Prescriptions: Morphine Ir [Ms Ir] 15 mg PO Q4H PRN #15 tablet PRN Reason: Pain Comments: Call your surgeon on Wednesday to discuss your issues with pain. Return if you develop a fever or worsen.
== END 2019-01-13 23:02 | disposition home or self-care (01) ==
LOC: ED 21:54
DX: G89.18 Other acute postprocedural pain (principal); R10.9 Unspecified abdominal pain; Z90.710 Acquired absence of both cervix and uterus; F17.200 Nicotine dependence, unspecified, uncomplicated
CPT/HCPCS: 96372; 99283; J1170

== ENCOUNTER 2023-11-14 17:46 | Emergency (ER) | payer MEDICAID ==
[2023-11-14 18:09] VITALS: O2SAT 100
--- NOTE | 2023-11-14 18:55 | ED Physician Documentation ---
History of Present Illness - Stated complaint Stated Complaint: R LEG SWOLLEN - Chief complaint Chief Complaint: Ext Problem - History obtained from History obtained from: Patient - History of Present Illness Timing: Today Pain level max: 4 Pain level now: 4 - Additonal information Additional information: 43-year-old female complains of redness, swelling to the medial aspect of the right ankle. She states she has had cellulitis in this area in the past and this feels similar. No fevers or chills. Does not recall any injury. She is currently on clindamycin for dental infection. Has an allergy to penicillin but states she has taken Keflex without issue in the past. No lacerations. Denies any possibility of . 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 HEENT: None Psych: Depression, Anxiety, Panic attacks, Post traumatic stress disorder Musculoskeletal: Osteoarthritis, Chronic back pain Derm: None - Past Surgical History Past Surgical History: Yes /GUEST RELATIONS MANAGER: section, Hysterectomy, Other HEENT: Tonsil/Adenoidectomy - Present Medications Home Medications: Ambulatory Orders Medication Instructions Recorded Confirmed Doxycycline [Vibramycin] 100 mg PO BID #20 tablet 11/14/23 Ibuprofen [Motrin] 1 tablet PO Q8H PRN 11/14/23 11/14/23 clindamycin HCL [Clindamycin HCl] 300 mg PO TID 11/14/23 11/14/23 - Allergies Allergies/Adverse Reactions: Allergies Allergy/AdvReac Type Severity Reaction Status Date / Time Penicillins Allergy Severe Respiratory Verified 11/14/23 18:00 hydrocodone bitartrate * AdvReac Severe Nausea Verified 11/14/23 18:00 [From Vicodin] tramadol AdvReac Severe Nausea Verified 11/14/23 18:00 - Social History Does the pt smoke?: Yes Smoking Status: Current every day smoker Does the pt drink ETOH?: Yes Does the pt have substance abuse?: Yes - Immunizations Immunizations are current?: Yes - POLST Patient has POLST: No PD ED PE NORMAL - Vitals Vital signs reviewed: Yes - General General: Alert and oriented X 3, No acute distress - HEENT HEENT: Moist mucous membranes - Neck Neck: Supple, no meningeal sign - Derm Derm: Warm and dry - Extremities Extremities: Other (Right lower extremity -8 x 4 cm area of erythema, warmth and tenderness on the medial aspect of the right ankle. No joint swelling or tenderness. Full range of motion of the ankle without pain. No evidence of septic joint.) - Neuro Neuro: Alert and oriented X 3 - Psych Psych: Normal mood, Normal affect Results - Vitals Vitals: Vital Signs - 24 hr 11/14/23 11/14/23 17:54 19:40 Temperature 36.7 C Heart Rate 85 89 Respiratory 18 16 Rate Blood Pressure 164/109 H 140/104 H O2 Saturation 100 100 Oxygen O2 Source Room air PD Medical Decision Making - ED course Complexity details: reviewed results, re-evaluated patient, considered differential, d/w patient ED course: Patient with what appears to be a cellulitis of the right ankle and right lower leg. Does not involve the joint itself. Full range of motion of the joint without pain. No evidence of septic joint. We will change her from clindamycin to doxycycline. She is on several medications that interfere with Bactrim. She was given a dose of Rocephin here. Will have her follow-up closely with her PCP and return if she worsens. Patient declines any pain medication for home. Patient counseled regarding signs and symptoms for which I believe and urgent re-evaluation would be necessary. Patient with good understanding of and agreement to plan and is comfortable going home at this time This document was made in part using voice recognition software. While efforts are made to proofread this document, sound alike and grammatical errors may occur. No crepitus. No evidence of necrotizing soft tissue infection Departure - Departure Disposition: 01 Home, Self Care Clinical Impression: Cellulitis Qualifiers: Site of cellulitis: extremity Site of cellulitis of extremity: lower extremity Laterality: right Qualified Code(s): L03.115 - Cellulitis of right lower limb Condition: Good Instructions: ED Infec Skin Cellulitis Follow-Up: your,doctor in 1 week [Other] Prescriptions: Doxycycline [Vibramycin] 100 mg PO BID #20 tablet Comments: Your prescription was sent to [facility] in [place]. Please take all antibiotics until gone. You can stop the clindamycin as this should cover your dental infection as well. Please return if you worsen. Forms: PCP List Discharge Date/Time: 11/14/23 19:41
[2023-11-14] MEDS: cefTRIAXone 1 GM VIAL IM STA (19:23)
[2023-11-14] MEDS: DOXYCYCLINE 100 MG TABLET PO STA (19:23)
[2023-11-14] MEDS: LIDOCAINE 1% 2 ML VIAL MC ONE (19:24)
[2023-11-14 19:48] VITALS: BP 140/104
== END 2023-11-14 19:41 | disposition home or self-care (01) ==
LOC: ED 17:46
DX: L03.115 Cellulitis of right lower limb (principal); E78.00 Pure hypercholesterolemia, unspecified; F17.200 Nicotine dependence, unspecified, uncomplicated
CPT/HCPCS: 96372; 99283; A9270